=== PATIENT | female | born 1970 | race Caucasian/White ===

== ENCOUNTER 2017-04-20 13:51 | Observation (INO) | payer OTHER ==
[2017-04-20 14:37] VITALS: BMI 32.1
[2017-04-20] MEDS: ACETAMINOPHEN TAB 500 MG TAB PO PRN (16:58)
[2017-04-20 17:52] LABS: Amorphous Sediment,Urine Occasional /hpf; Appearance,Urine Clear (Clear); Bilirubin,Urine Negative (Negative); Glucose,Urine (UA) Negative (Negative); Ketones,Urine 2+ (Negative); Leukocyte Esterase,Urine Negative (Negative); Nitrite,Urine Negative (Negative); Particle Count 676; Protein,Urine Negative (Negative); RBC,Urine 1 /hpf (0-5); Specific Gravity,Urine 1.003 (1.001-1.035); Squamous Epithelial Cell,Urine 1 /hpf (0-4); UA Billing (MACRO vs. MICRO) MICRO; Urobilinogen,Urine <2.0 mg/dL (<2.0); WBC,Urine <1 /hpf (0-5)
[2017-04-20 18:07] LABS: Basophils % (A) 0 %; CH 31.3; CHCM 34.1; Eosinophils % (A) 0 %; HCT 39.9 % (34.0-46.0); HDW 2.31; HGB 13.1 gm/dL (11.4-16.0); Luc # (Auto) 0.09; Luc % (Auto) 2; Lymphocytes # (A) 0.5 k/uL (1.0-4.8); Lymphocytes % (A) 9 %; MCH 30.2 pg (25.0-35.0); MCHC 32.8 g/dL (31.0-37.0); MCV 92.1 fL (80.0-100.0); Mean Platelet Volume 7.5; Monocytes # (A) 0.2 k/uL (0-1.0); Monocytes % (A) 4 %; Neutrophils # (A) 4.7 k/uL (1.3-7.7); Neutrophils % (A) 85 %; RBC 4.33 m/uL (3.80-5.40); RDW 13.4 % (11.5-15.5); WBC 5.6 k/uL (3.8-10.6); WBC (Perox) 5.65
[2017-04-20] MEDS: SODIUM CHLORIDE 0.9% 1,000 ML IV SCH (18:07)
[2017-04-20 18:13] LABS: ALT 492 U/L (9-52); AST 313 U/L (14-36); Alkaline Phosphatase 348 U/L (38-126); Anion Gap 12 mmol/L; Blood Urea Nitrogen 7 mg/dL (7-17); Calcium 8.5 mg/dL (8.4-10.2); Carbon Dioxide 25 mmol/L (22-30); Chloride 102 mmol/L (98-107); Glucose 95 mg/dL (74-99); Non-African American GFR(MDRD) >60 (>60 ml/min/1.73 sqM); Potassium 4.1 mmol/L (3.5-5.1); Sodium 139 mmol/L (137-145); Total Bilirubin 1.3 mg/dL (0.2-1.3); Total Protein 6.6 g/dL (6.3-8.2)
--- NOTE | 2017-04-20 18:54 | XR ---
EXAMINATION TYPE: XR chest 2V DATE OF EXAM: 04/20/2017 COMPARISON: NONE HISTORY: Fever. TECHNIQUE: Frontal and lateral views of the chest are obtained. FINDINGS: There is no focal air space opacity, pleural effusion, or pneumothorax seen. The cardiac silhouette size is within normal limits. The osseous structures are intact. IMPRESSION: No acute cardiopulmonary process.
[2017-04-20] MEDS: lamoTRIgine 100 MG TAB PO SCH (21:02)
[2017-04-20] MEDS: ZIPRASIDONE 20 MG CAP PO SCH (21:03)
[2017-04-20] MEDS: traZODone HCL 50 MG TAB PO SCH (21:03)
[2017-04-20] MEDS: HYDROcodone/APAP 5-325MG 1 EACH TAB PO PRN (21:47)
[2017-04-21] MEDS: HYDROcodone/APAP 5-325MG 1 EACH TAB PO PRN ×5 (01:59→20:59)
[2017-04-21] MEDS: LORazepam 0.5 MG TAB PO PRN ×5 (02:04→21:00)
[2017-04-21] MEDS: SODIUM CHLORIDE 0.9% 1,000 ML IV SCH ×3 (06:52→19:20)
[2017-04-21] MEDS: ZIPRASIDONE 20 MG CAP PO SCH ×2 (08:56→21:00)
[2017-04-21 10:24] LABS: Basophils % (A) 1 %; CH 30.7; CHCM 32.2; Eosinophils % (A) 0 %; HCT 39.9 % (34.0-46.0); HDW 2.35; HGB 12.7 gm/dL (11.4-16.0); Luc # (Auto) 0.11; Luc % (Auto) 2; Lymphocytes # (A) 0.6 k/uL (1.0-4.8); Lymphocytes % (A) 9 %; MCH 30.5 pg (25.0-35.0); MCHC 31.8 g/dL (31.0-37.0); MCV 95.8 fL (80.0-100.0); Mean Platelet Volume 7.8; Monocytes # (A) 0.2 k/uL (0-1.0); Monocytes % (A) 4 %; Neutrophils # (A) 5.1 k/uL (1.3-7.7); Neutrophils % (A) 85 %; RBC 4.16 m/uL (3.80-5.40); RDW 13.1 % (11.5-15.5); WBC (Perox) 6.07
[2017-04-21] MEDS: ACETAMINOPHEN TAB 500 MG TAB PO PRN (10:30)
[2017-04-21 11:03] LABS: Hemoglobin A1C 5.2 % (4.2-6.1)
--- NOTE | 2017-04-21 11:28 | P.PN ---
Subjective A 46-year-old female being seen this morning resting in bed. Patient continues to report having discomfort in the back of the head and in the neck area. Patient's initial presentation was a direct admission from Dr. Triplett's office. Patient states that she has a psychiatrist that she sees Dr. foster in the outpatient setting for her bipolar treatment. Patient stated that she was diagnosed bipolar at the age of 16 and had been on medication. States that she saw her psychiatrist a week ago was making medication changes. Patient stated on Wednesday or Wednesday not certain of the timing started developing pain in the neck and the back of the head. Patient stated on Wednesday she did call the psychiatrist office the office was not open the pain in the neck continue to persist subsequently the patient was seen in Dr. Triplett's office and was advised to be admitted. Currently patient is on Lamictal and Ativan noted the patient's AST 313 and the ALT elevated at 492 with an alk phos of 348. Patient states she continues to have discomfort in the back of the neck no white count on admission the temp was 101. The temp this morning is 100.1. Patient states that the psychiatrists told her that if she developed any discomfort to notify him possibly could be going through withdrawals. It's not certain what medication changes the psychiatrist was making her weaning the patient off she thought it was Trileptal that was stopped patient was also started on Tegretol and states there's been no nausea vomiting no frequent stooling no abdominal pain and no shortness of breath no prior episodes Objective - Vital Signs Vital signs: Vital Signs Temp 100.1 F H 04/21/17 08:10 Pulse 60 04/21/17 08:10 Resp 20 04/21/17 08:10 BP 115/68 04/21/17 08:10 Pulse Ox 96 04/21/17 08:10 Intake & Output 04/20/17 04/21/17 04/21/17 18:59 06:59 18:59 Intake Total 240 240 Balance 240 240 Weight 82.1 kg Intake: Oral 240 240 Other: # Voids 2 - Exam Physical exam 46-year-old female resting in bed continues to report having neck discomfort back of the head "hurts pleasant oriented 3 Lungs essentially clear adequate air movement Heart S1-S2 audible and regular Abdomen soft nontender reports no nausea vomiting Extremities no edema to the bilateral upper or lower extremities moves all extremities - Labs CBC & Chem 7: 04/21/17 10:08 04/20/17 17:39 Labs: Abnormal Lab Results - Last 24 Hours (Table) 04/20/17 04/20/17 04/20/17 Range/Units 17:39 17:39 17:39 Lymphocytes # 0.5 L (1.0-4.8) k/uL AST 313 H (14-36) U/L ALT 492 H (9-52) U/L Alkaline Phosphatase 348 H (38-126) U/L Cholesterol 211 H (<200) mg/dL LDL Cholesterol, Calc 143 H (0-99) mg/dL Urine Ketones (Negative) Urine Blood (Negative) Amorphous Sediment (None) /hpf 04/20/17 04/21/17 Range/Units 17:43 10:08 Lymphocytes # 0.6 L (1.0-4.8) k/uL AST (14-36) U/L ALT (9-52) U/L Alkaline Phosphatase (38-126) U/L Cholesterol (<200) mg/dL LDL Cholesterol, Calc (0-99) mg/dL Urine Ketones 2+ H (Negative) Urine Blood Trace H (Negative) Amorphous Sediment Occasional H (None) /hpf Microbiology - Last 24 Hours (Table) 04/20/17 17:43 Urine Culture - Preliminary Urine,Clean Catch Assessment and Plan Plan: Impression Present on admission febrile persistent headache with neck pain possible drug interaction Bipolar disorder Present on admission elevated AST ALT and alk phos possible drug-induced Plan Await neurology eval Await psych eval Repeat labs IV fluid for hydration Home meds as appropriate Further recommendations pending DVT and GI prophylaxis Follow-up on pending blood and urine culture The above impression and plan of care have been discussed and directed by signing physician. Camille Lundberg nurse practitioner acting as scribe for signing physician.
--- NOTE | 2017-04-21 15:02 | P.CN ---
Psychiatric Consult - . Consult date: 04/21/17 Consult:: 04/21/17 14:50 DATE OF SERVICE: 04/21/2017 IDENTIFYING DATA: This patient is a 46-year-old female admitted to medical floor with headache. HISTORY OF PRESENT ILLNESS: The patient presents with report of a severe headache starting Wednesday or Wednesday and increasing to the point that she could not tolerate and came to the hospital. Patient gives history of having a change of medications by Dr. Lemus reviewed reports that she had been taking Trileptal 300 mg twice a day and Dr. Lemus thought it should be increased to 600 twice a day. This was done for approximately 3 days when she became faint, dizzy and cramping in her legs. Dr. Lemus reduced it back to 300 mg twice a day for 4 days then decrease to 150 mg twice a day for 4 days then 150 mg once a day for 5 days. Tegretol was then begun at 200 mg every morning for 2 days then 200 mg twice a day for 2 days and on Wednesday that was when she began to notice the symptoms of the headache which then increased to the point where she can hardly move and nausea. In addition to this change in medicine she has been on Geodon 20 mg twice a day, Lamictal 100 mg daily at bedtime, trazodone 75 mg daily at bedtime and Ativan 0.5 mg when necessary. Patient denies any drugs or alcohol. Patient reports that she was diagnosed with bipolar approximately 30 years ago and has been treated for bipolar for the past 30 years. She does note that she had one episode of having seizures after she overdosed on a medication that she cannot recall the name of.. PAST PSYCHIATRIC HISTORY: As above she was diagnosed 30 years ago with bipolar disorder has been on a number of different medications that she is not able to recall at this moment. She reports that she made several suicide attempts in the last one was in 2013 and that was when she had seizures due to the medication that she used to overdose on she had approximately 5 hospitalizations between the period of 2012 in 2014 which were related to her and she splitting up.. PAST MEDICAL HISTORY: Per record. ALLERGIES: No known ALLERGIES. CHEMICAL DEPENDENCY HISTORY: Denies. FAMILY PSYCHIATRIC HISTORY: Aunt and sister have depression and her aunt attempted suicide but did not complete. Nobody in the family has completed suicide. FAMILY CHEMICAL DEPENDENCY HISTORY: Denies. LEGAL HISTORY: Denies. MENTAL STATUS EXAM: Patient alert and oriented 3, good eye contact, well groomed in hospital attire. Speech low volume, rate and production. Coherent, logical and goal directed thought process. No ANTHONY, no FOI. No TB/TW/ TI Denied auditory and visual hallucinations. Denied paranoid ideation, delusions or IOR. Memory grossly intact Cognition average Mood neutral, affect full range decreased intensity, congruent with mood. Denies suicidal ideation, denies homicidal ideation. Insight full; Judgment intact for treatment purposes . IMPRESSIONS: 46-year-old female with history of a recent change in her medicines that coincided with the onset of a severe headache, nausea, dizziness. The 2 medications that are in question are similar in nature both anticonvulsant Trileptal and Tegretol the titration and tapering appeared to be normal practice and should not have this reaction. She is not having any display of joe, psychosis, or depression. Review of her medical chart at this hospital shows that she had an admission for cervicalgia which this could be although atypical presentation. Neurology Will evaluate and since they have much more experience with the use of anticonvulsant drugs may be able to provide answer to this. Agreed that review of her liver since she has an elevated enzyme is appropriate. Patient is stable psychiatrically Bipolar, type I by history PLAN: Continue workup. Psychiatry will follow with you, if patient becomes manic Geodon 20mg can be used oral or IM.
[2017-04-21] MEDS: ONDANSETRON 4 MG/2 ML VIAL IVP PRN (15:36)
--- NOTE | 2017-04-21 20:25 | P.PCN ---
Date of Procedure: 04/21/17 Preoperative Diagnosis: Headache Postoperative Diagnosis: as above Procedure(s) Performed: attempted lumbar puncture Implants: Anesthesia: local Surgeon: Lenora Storey Pathology: none sent Condition: stable Disposition: floor Indications for Procedure: Operative Findings: Description of Procedure: I was asked to perform a lumbar puncture for CSF sampling to rule out viral meningitis.After reviewing the patient's history and labs, and explaining the procedure to her, the patient was placed in the sitting position.The lumbar area skin was prepped with Chloraprep and draped in a sterile fashion.Face mask , a hat and sterile gloves were used by the blender machine operator .I used 22 G, Quincke spinal needle , and after multiple unsuccessful attempts I decided to abort the procedure.The attempts were done at the levels of L4-5, and L3-4. The patient has never complained about any Leg pain or paresthesia during the procedure.She did mention that she has a chronic lower back pain that has not been worked up. I recommend that this procedure be done under x ray guidance by interventional radiology.
--- NOTE | 2017-04-21 20:52 | CT ---
EXAMINATION TYPE: CT brain wo con DATE OF EXAM: 04/21/2017 COMPARISON: MRI brain December 27, 2015. CT brain October 06, 2013. HISTORY: Headache CT DLP: 925.40 mGycm. Automated Exposure Control for Dose Reduction was Utilized. TECHNIQUE: CT scan of the head is performed without contrast. FINDINGS: There is no acute intracranial hemorrhage, mass effect, or midline shift identified. Gra y-white matter differentiation is maintained. The ventricles and sulci are within normal limits in si ze. Mild mucosal thickening involving the inferior frontal sinuses bilaterally is redemonstrated. The globes are intact and the visualized sinuses are otherwise clear. IMPRESSION: No acute intracranial hemorrhage, mass effect, or midline shift is seen. No significant change from prior CT or MRI brain studies.
[2017-04-21] MEDS: lamoTRIgine 100 MG TAB PO SCH (21:00)
[2017-04-21] MEDS: traZODone HCL 50 MG TAB PO SCH (21:00)
[2017-04-22] MEDS: HYDROcodone/APAP 5-325MG 1 EACH TAB PO PRN ×5 (02:00→21:16)
[2017-04-22] MEDS: LORazepam 0.5 MG TAB PO PRN ×5 (02:00→21:16)
[2017-04-22 06:56] LABS: Basophils % (A) 0 %; CH 30.4; CHCM 33.6; Eosinophils % (A) 0 %; HCT 37.1 % (34.0-46.0); HDW 2.53; HGB 12.4 gm/dL (11.4-16.0); Luc % (Auto) 2; Lymphocytes # (A) 1.1 k/uL (1.0-4.8); Lymphocytes % (A) 16 %; MCH 30.3 pg (25.0-35.0); MCHC 33.4 g/dL (31.0-37.0); Mean Platelet Volume 6.8; Monocytes # (A) 0.2 k/uL (0-1.0); Monocytes % (A) 3 %; Neutrophils # (A) 5.5 k/uL (1.3-7.7); Neutrophils % (A) 79 %; RBC 4.08 m/uL (3.80-5.40); RDW 12.6 % (11.5-15.5); WBC 6.9 k/uL (3.8-10.6); WBC (Perox) 6.78
[2017-04-22 07:11] LABS: MCV 90.8 fL (80.0-100.0)
[2017-04-22 07:12] LABS: ALT 285 U/L (9-52); AST 106 U/L (14-36); Alkaline Phosphatase 334 U/L (38-126); Anion Gap 9 mmol/L; Blood Urea Nitrogen 6 mg/dL (7-17); Carbon Dioxide 26 mmol/L (22-30); Chloride 105 mmol/L (98-107); Glucose 80 mg/dL (74-99); Non-African American GFR(MDRD) >60 (>60 ml/min/1.73 sqM); Potassium 4.2 mmol/L (3.5-5.1); Sodium 140 mmol/L (137-145); Total Bilirubin 1.2 mg/dL (0.2-1.3); Total Protein 5.7 g/dL (6.3-8.2)
[2017-04-22] MEDS: SODIUM CHLORIDE 0.9% 1,000 ML IV SCH ×3 (07:47→23:16)
[2017-04-22] MEDS: ONDANSETRON 4 MG/2 ML VIAL IVP PRN ×2 (08:08→15:58)
--- NOTE | 2017-04-22 09:37 | HP ---
CHIEF COMPLAINT: 46 -year-old white female who was admitted with Trileptal and Tegretol withdrawal and intractable headache. States she cannot tolerate the headache at home. Dr. Selby sent her to the hospital for a direct admission as she has been weaning off Trileptal and Tegretol. At this point, she became nauseated and severe headache and her other medications will continue including Ativan, Trazodone, Geodon and Lamictal. She has history of bipolar for 30 years , possible some sleep apnea, undiagnosed. She had one seizure. She has overdosed on medications in the past. Allergies negative. Psych history: Aunt and sister have depression. Aunt committed suicide. REVIEW OF SYSTEMS: See H&P. 14 point review of systems otherwise negative except for migraine and nausea. Vital signs reviewed. Cardiovascular: S1, S2. She is lying in bed, flat affect. Depressed. Endocrine: BMI appears a little bit heavy in the 30s. Lungs transmitted upper airway sounds. GI soft. Hematology: Negative Homans. Psych: Fair mood. Flat affect. Assessment: 1. Acute drug withdrawal. 2. Intractable headache secondary to drug withdrawal. Psych and neuro have been consulted. ( ) medicines have been given as Fioricet did not help her headache. Await neurological and psych consultations. ADRID
[2017-04-22 11:03] LABS: Prothrombin Time 10.1 sec (9.0-12.0)
--- NOTE | 2017-04-22 11:13 | CONS ---
DATE OF CONSULTATION: 04/21/2017 CHIEF COMPLAINT: Headache. HISTORY OF PRESENT ILLNESS: Mrs. Zaman is a pleasant 46-year-old female who is being evaluated today on 04/21/2017 by the Neurology Service per the request of Dr. Triplett for a severe and constant headache. The patient denies any previous history of headaches but states that she has been having a severe headache that started approximately 5 days ago. She reported having some chills 5 days ago. She denies having any ill contact and denies any recent travel. She went to see Dr. Triplett in the clinic and was admitted to [facility] for further management. During her hospital stay, her T- max was 101.0. She describes the pain as a dull throbbing pain that is mostly in the posterior head region. She is also complaining of neck stiffness. She has not had any drowsiness, confusion or seizure-like activity. Her CBC was normal and her urinalysis was normal. Her comprehensive metabolic profile showed hepatic insufficiency with AST of 313, ALT of 492, and alkaline phosphatase at 348. She denies any history of liver disease. An abdominal ultrasound has been ordered. Her fasting lipid panel showed mild dyslipidemia with a cholesterol of 211 and an LDL of 143. At the time of my evaluation, she rates her headache at 7/10 in intensity. She has been receiving hydrocodone as needed with only mild relief in intensity. She does complaint of photophobia associated with a headache. In reviewing her home medications, she is on multiple psychiatric medications and psychiatry has been consulted. PAST MEDICAL HISTORY: Psychiatric disorders. SOCIAL HISTORY: She denies any tobacco, alcohol or drug use. FAMILY HISTORY: Noncontributory. HOME MEDICATIONS: Reviewed in the chart. ALLERGIES: No known drug allergies. REVIEW OF SYSTEM: CONSTITUTIONAL: As mentioned above. EYES: As mentioned above. ENT: Negative. CARDIOVASCULAR: Negative. RESPIRATORY: Negative. NEUROLOGICAL: As mentioned above. GASTROINTESTINAL: Negative. GENITOURINARY: Negative. MUSCULOSKELETAL: As mentioned above. DERMATOLOGICAL: Negative. ENDOCRINE: Negative. PSYCHIATRIC: As mentioned above. PHYSICAL EXAM: Vital signs show a temperature of 98.4 with a T-max of 101.0, pulse 71, respirations 16, blood pressure 108/53. GENERAL APPEARANCE: The patient is a well-developed female who appears to be in no acute distress. Neck has mild rigidity on cervical flexion. HEENT: Normocephalic, atraumatic. No facial asymmetry is seen. Extraocular muscles are intact. Tenderness to palpation is noticed along bilateral greater occipital nerve region. CARDIOVASCULAR: Regular rate and rhythm. ABDOMEN: Mild tenderness to palpation is present. Abdomen is nondistended. Extremities showed no edema or clubbing. NEUROLOGICAL EXAM: The patient is alert, aware and oriented x3. Speech and language are normal. Strength is full in all 4 extremities. Sensory exam was normal to light touch in all 4 extremities. No facial asymmetry is seen on cranial nerve testing. No tremors or seizure-like activity is seen. IMPRESSION: 1. Intractable headache. 2. Neck pain. 3. Fever. 4. Hepatic insufficiency. 5. Psychiatric disorders. RECOMMENDATION: Given the patient's intractable headache with no previous history of headaches, I will order a STAT CT scan of the brain. If no intracranial mass is seen, I do recommend a lumbar puncture for spinal fluid analysis to rule out any spiral meningitis. I recommend a CSF sulcal, protein level, glucose level, gram-stain and viral cultures. I do recommend an Infectious Disease consultation if her spinal fluid tests are abnormal. The patient also has evidence of occipital neuritis on my examination. If her headache is not due to any infectious process, she will likely need peripheral nerve blocks which can be done in the outpatient clinic. I do recommend extensive work-up for her hepatic insufficiency. This could be caused or made worse, her psychiatric medications. Psychiatry has been consulted. Continue neuro checks. I will continue to follow with you. Further recommendations to follow. Thank you for allowing me to participate in the care of your patient. If you have any questions, please feel free to contact me. ANGELIQUE
--- NOTE | 2017-04-22 11:40 | US ---
EXAMINATION TYPE: US abdomen complete DATE OF EXAM: 04/22/2017 COMPARISON: NONE CLINICAL HISTORY: Elevated liver enzymes. EXAM MEASUREMENTS: Liver Length: 17.9 cm Gallbladder Wall: 0.4 cm CBD: 0.5 cm Spleen: 13.8 cm Right Kidney: 11.2 x 4.7 x 4.6 cm Left Kidney: 13.0 x 5.8 x 4.8 cm Pancreas: visualized portions appear wnl Liver: upper limits of normal in size Gallbladder: no evidence of stones, GB wall upper limits of normal Evidence for sonographic Lara's sign: No CBD: appears wnl Spleen: enlarged Right Kidney: no evidence of hydronephrosis or mass Left Kidney: no evidence of hydronephrosis or mass Upper IVC: wnl Abd Aorta: visualized portions appear wnl The liver is homogenous. The intrahepatic portion of the IVC and proximal abdominal aorta are within normal limits. There is no evidence of cholelithiasis. Common bile duct is unremarkable. The visu alized portions of the pancreas are homogenous. The spleen is unremarkable. Kidneys are symmetric a nd free of hydronephrosis. No renal lesions are seen. IMPRESSION: 1. Gallbladder wall measures 4.5 mm and is slightly thickened. No gallstones or pericholecystic fluid . Correlate clinically and if necessary with HIDA scan.
[2017-04-22] MEDS: ZIPRASIDONE 20 MG CAP PO SCH ×2 (15:58→21:11)
--- NOTE | 2017-04-22 15:58 | FL ---
EXAMINATION TYPE: FL guided lumbar puncture LP DATE OF EXAM: 04/22/2017 COMPARISON: MRI lumbar spine August 17, 2014. HISTORY: Severe headache and neck pain, assess for meningitis. TECHNIQUE: Fluoroscopic assisted lumbar puncture for CSF analysis. A total of 3 minutes 54 seconds of fluoroscopic time was utilized during procedure. Findings: Informed consent was obtained and all the patient's questions were answered. Betadine was used as to cleanse the skin. Standard sterile technique was utilized as well as appropriate local a nesthesia Lidocaine. 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 The L3-L4 level was first attempted localized under fluoroscopy. This was unsuccessful as kept encoun tering bone short of spinal canal. After this under fluoroscopic guidance attempt was made at L4-L5 level using paraspinal approach. Spinal needle was introduced into the thecal sac under fluoroscopic guidance and desired 7- 9 cc of c lear CSF was obtained in 4 vials. At this point needle was withdrawn. The patient tolerated the procedure well and left the department to return to the floor in stable con dition. Vital signs were monitored before, during, and after the procedure. IMPRESSION: Successful uncomplicated assisted lumbar puncture for CSF analysis. Labs were ordered by requesting neurologist.
[2017-04-22 16:29] LABS: Glucose,CSF 46 mg/dL (40-70)
--- NOTE | 2017-04-22 16:35 | P.PN ---
Subjective Female being seen this morning on rounds. Patient is aware the plan of care is scheduled this morning to undergo a diagnostic lumbar puncture studies. Temp this morning 98.8 on room air sats are 90% the ultrasound of the abdomen showed gallbladder wall measures 4 x 4 slightly thickened there is an improvement in the liver enzymes are trending down Objective - Vital Signs Vital signs: Vital Signs Temp 97.5 F L 04/22/17 12:25 Pulse 60 04/22/17 12:25 Resp 16 04/22/17 12:25 BP 110/54 04/22/17 12:25 Pulse Ox 99 04/22/17 12:25 Intake & Output 04/21/17 04/22/17 04/22/17 18:59 06:59 18:59 Intake Total 240 Output Total 310 Balance 240 -310 Intake: Oral 240 Output: Urine 310 Other: Voiding Method Toilet # Voids 2 1 - Exam Physical exam 46-year-old female resting in bed patient reports continues to have a headache but is not as intense. Patient states pain medication offer some mild relief in the intensity of the headache. Patient does report having sensitivity to light with the headache denies blurred vision. States there is last neck stiffness Lungs essentially clear adequate air movement no cough noted Heart S1-S2 audible and regular Abdomen soft nontender reports no nausea vomiting Extremities no edema to the bilateral upper or lower extremities moves all extremities - Labs CBC & Chem 7: 04/22/17 06:26 04/22/17 06:26 Labs: Abnormal Lab Results - Last 24 Hours (Table) 04/22/17 Range/Units 06:26 BUN 6 L (7-17) mg/dL Calcium 8.0 L (8.4-10.2) mg/dL AST 106 H (14-36) U/L ALT 285 H (9-52) U/L Alkaline Phosphatase 334 H (38-126) U/L Total Protein 5.7 L (6.3-8.2) g/dL Albumin 3.3 L (3.5-5.0) g/dL Microbiology - Last 24 Hours (Table) 04/20/17 17:43 Urine Culture - Final Urine,Clean Catch 04/20/17 18:03 Blood Culture - Preliminary Blood No Growth after 24 hours 04/20/17 17:39 Blood Culture - Preliminary Blood No Growth after 24 hours Assessment and Plan Plan: Impression Present on admission febrile persistent headache with neck pain possible drug interaction Bipolar disorder Present on admission elevated AST ALT and alk phos possible drug-induced Occipital neuritis present on admission Plan Await the LP findings Eder recommendations reviewed noted Repeat labs IV fluid for hydration Home meds as appropriate Further recommendations pending DVT and GI prophylaxis Follow-up on pending blood and urine culture The above impression and plan of care have been discussed and directed by signing physician. Camille Lundberg nurse practitioner acting as scribe for signing physician.
--- NOTE | 2017-04-22 17:00 | P.PN ---
Subjective Principal diagnosis: She is a pleasant 46-year-old female who is being followed by the neurology service for intractable headache. Patient denies history of headaches but states she's had a headache that has been ongoing for the last week. Patient does report being in contact with her sister who just returned from [place]. Patient did seek treatment from primary care physician who instructed her to come to [facility] for further management. Patient complains of constant headache along with neck stiffness. Patient did have lumbar puncture performed and results are pending. At the time of my evaluation , patient is resting comfortably in bed and rates her headache at a 7 out of 10 in intensity. Patient does complain of photophobia. Patient also complains of visual disturbance of flashing lights when she closes her eyes. Patient also has history of multiple psychiatric medications and psychiatry has been consulted. Objective - Vital Signs Vital signs: Vital Signs Temp 98.8 F 04/22/17 15:51 Pulse 62 04/22/17 16:00 Resp 16 04/22/17 15:51 BP 116/61 04/22/17 15:51 Pulse Ox 98 04/22/17 15:51 Intake & Output 04/21/17 04/22/17 04/22/17 18:59 06:59 18:59 Intake Total 240 45 Output Total 250 Balance 240 -205 Intake: Oral 240 45 Output: Urine 250 Other: Voiding Method Toilet # Voids 2 1 1 - Exam PHYSICAL EXAM: GENERAL APPEARANCE: Patient is a well-developed, female who appears to be in no acute distress. HEENT: Normocephalic, atraumatic, no facial asymmetry is seen. Neck is supple with no masses felt. CARDIOVASCULAR: Regular rate and rhythm. ABDOMEN: Nontender, nondistended. EXTREMITIES: Show no edema or clubbing. NEUROLOGICAL EXAM: Patient is awake, alert, and oriented 3. Speech and language are normal. Strength is full in all 4 extremities. Sensory exam is normal to light touch in all 4 extremities. No facial asymmetry is seen on cranial nerve testing. No seizure-like activity is noted. Patient does have resting tremor and postural tremors of the upper extremities which is greater in the right upper extremity. - Labs CBC & Chem 7: 04/22/17 06:26 04/22/17 06:26 Labs: Abnormal Lab Results - Last 24 Hours (Table) 04/22/17 Range/Units 06:26 BUN 6 L (7-17) mg/dL Calcium 8.0 L (8.4-10.2) mg/dL AST 106 H (14-36) U/L ALT 285 H (9-52) U/L Alkaline Phosphatase 334 H (38-126) U/L Total Protein 5.7 L (6.3-8.2) g/dL Albumin 3.3 L (3.5-5.0) g/dL Microbiology - Last 24 Hours (Table) 04/20/17 17:43 Urine Culture - Final Urine,Clean Catch 04/20/17 18:03 Blood Culture - Preliminary Blood No Growth after 24 hours 04/20/17 17:39 Blood Culture - Preliminary Blood No Growth after 24 hours Assessment and Plan Plan: IMPRESSION: 1. Intractable headache 2. Neck pain 3. Fever 4. Hepatic insufficiency 5. Psychiatric disorder Recommendation: Patient presented with intractable headache with no history of headaches. Stat CT was done which showed no acute intracranial hemorrhage, mass effect, or midline shift. Computed tomography scan of the brain did not reveal any intracranial mass or pathology that would be contributing to intractable headache. Therefore, a lumbar puncture was performed for spinal fluid analysis to rule out spinal meningitis. If cerebrospinal fluid tests are abnormal I recommend infectious disease consult. Patient also has occipital neuritis on exam. If infectious process is ruled out, greater occipital nerve blocks can be done in the outpatient clinic setting. I do recommend review and revision of psychiatric medications. Continue neurological checks. Continue medical management. I will continue to follow with you. Further recommendations to follow. I performed an examination of the patient and discussed the management with the DEPARTMENTAL SECRETARY. I have reviewed the DEPARTMENTAL SECRETARY notes and agree with the findings and plan of care.
[2017-04-22 20:06] LABS: Appearance,CSF Clear
[2017-04-22 20:07] LABS: Red Blood Cell, CSF Crenated 60 %; Red Blood Cell, CSF Fresh 40 %
[2017-04-22] MEDS: lamoTRIgine 100 MG TAB PO SCH (21:11)
[2017-04-22] MEDS: traZODone HCL 50 MG TAB PO SCH (21:11)
[2017-04-23] MEDS: LORazepam 0.5 MG TAB PO PRN ×4 (02:03→21:19)
[2017-04-23] MEDS: HYDROcodone/APAP 5-325MG 1 EACH TAB PO PRN ×4 (02:03→21:19)
[2017-04-23] MEDS: SODIUM CHLORIDE 0.9% 1,000 ML IV SCH ×3 (06:55→21:25)
[2017-04-23 07:07] LABS: Basophils % (A) 0 %; CH 30.9; CHCM 33.9; Eosinophils % (A) 0 %; HCT 35.5 % (34.0-46.0); HDW 2.49; HGB 11.5 gm/dL (11.4-16.0); Luc # (Auto) 0.07; Luc % (Auto) 1; Lymphocytes # (A) 1.1 k/uL (1.0-4.8); Lymphocytes % (A) 18 %; MCH 29.8 pg (25.0-35.0); MCHC 32.5 g/dL (31.0-37.0); MCV 91.7 fL (80.0-100.0); Mean Platelet Volume 7.4; Monocytes # (A) 0.2 k/uL (0-1.0); Monocytes % (A) 4 %; Neutrophils # (A) 4.7 k/uL (1.3-7.7); Neutrophils % (A) 77 %; RBC 3.88 m/uL (3.80-5.40); RDW 13.1 % (11.5-15.5); WBC 6.1 k/uL (3.8-10.6); WBC (Perox) 6.37
[2017-04-23 07:32] LABS: ALT 231 U/L (9-52); AST 109 U/L (14-36); Alkaline Phosphatase 326 U/L (38-126); Anion Gap 8 mmol/L; Blood Urea Nitrogen 4 mg/dL (7-17); Calcium 7.8 mg/dL (8.4-10.2); Carbon Dioxide 26 mmol/L (22-30); Chloride 106 mmol/L (98-107); Glucose 83 mg/dL (74-99); Non-African American GFR(MDRD) >60 (>60 ml/min/1.73 sqM); Sodium 140 mmol/L (137-145); Total Protein 5.1 g/dL (6.3-8.2)
--- NOTE | 2017-04-23 09:33 | NM ---
EXAMINATION TYPE: NM hepatobiliary w EF DATE OF EXAM: 04/23/2017 COMPARISON: Complete abdominal ultrasound from yesterday HISTORY: Abdominal pain with diminished appetite and nausea. TECHNIQUE: After the intravenous administration of 5.5 mCi Tc 99m Mebrofenin hepatobiliary scintigrap hy is performed. Immediate images post injection. FINDINGS: There is satisfactory initial accumulation of tracer by the liver. The gallbladder is visualized wit hin 20 minutes. The small bowel activity is noted within 30 minutes. At one hour 8 ounces of oral e nsure plus is given to mimic CCK and gallbladder ejection fraction is calculated at 32 %, slightly de viated from normal range. Therefore there is no scintigraphic evidence of cystic or common bile duct obstruction to suggest acute cholecystitis. Overall diminished ejection fraction is consistent with chronic cholecystitis or gallbladder dyskinesia. IMPRESSION: Ejection fraction is 32%, slightly deviated from the normal range, scintigraphic findings are consistent with some underlying gallbladder dyskinesia.
[2017-04-23] MEDS: ZIPRASIDONE 20 MG CAP PO SCH ×2 (09:39→21:19)
--- NOTE | 2017-04-23 15:27 | MR ---
EXAMINATION TYPE: MR brain wo con DATE OF EXAM: 04/23/2017 COMPARISON: MRI brain December 27, 2015. CT brain from 2 days ago. HISTORY: Headaches, possible meningitis. TECHNIQUE: Multiplanar, multisequence imaging of the brain and brainstem is performed without IV cont rast. FINDINGS: Diffusion weighted images demonstrate no evidence of a recent infarct or other diffusion abnormality. There is no extraaxial fluid collection or significant white matter signal abnormality. There is new single 2 mm T2 hyperintense focus right roman radiata on axial image 20 likely of clinical insignifi cance and slightly more prominent 3 mm right centrum semiovale frontal lobe on axial image 23. The ve ntricular system and cisternal spaces are normal in size and appearance. The brain volume is age fernando ropriate. Midline structures demonstrate normal morphology. The craniocervical junction appears within normal limits. Normal vascular flow voids are present. There is now mild mucosal thickening in the ethmoid s inuses bilaterally otherwise paranasal sinuses are clear. IMPRESSION: No significant finding is seen to account for patient's symptoms on noncontrast study.
--- NOTE | 2017-04-23 15:30 | MR ---
EXAMINATION TYPE: MR angio head wo con DATE OF EXAM: 04/23/2017 COMPARISON: Same day MRI brain study. HISTORY: Headaches TECHNIQUE: Time of flight images focusing on the [place] of [place] were performed without contrast.. 2-D and 3-D postprocessing imaging is performed. FINDINGS: There is codominant vertebrobasilar system with slightly tortuous course to the distal righ t vertebral artery. Both vertebral arteries are patent to the basilar junction. There is no significa nt focal stenosis or aneurysmal change seen. There is hypoplastic right P1 segment with filling of th e P2 segment due to patent posterior communicating artery on the right. There is hypoplastic left pos terior communicating artery identified. Images of the anterior circulation show marked tortuosity to the distal internal carotid arteries dangelo aterally including bilateral petrous and supraclinoid segments making evaluation suboptimal. There is no convincing evidence of focal aneurysm. Short segment patent anterior communicating artery is pres ent on image 66. IMPRESSION: No evidence of significant focal stenosis or aneurysmal change at the level of the [place] of [place]. Normal variant is appreciated.
--- NOTE | 2017-04-23 15:43 | P.GSCN ---
History of Present Illness Consult date: 04/23/17 Reason for Consult: Nausea, abdominal pain History of present illness: This a 46-year-old female who is admitted to Dr. Errol Suazo service. Patient was admitted for nausea and abdominal pain. Patient CAT scan performed which showed a large gallbladder. Her HIDA scan shows evidence of biliary dysfunction with the diminished ejection fraction of 32%. Past Medical History Past Medical History: No Reported History History of Any Multi-Drug Resistant Organisms: None Reported Past Surgical History: Bariatric Surgery, Hysterectomy Additional Past Surgical History / Comment(s): thyroid biopsy - 2012 non diagnostic Past Anesthesia/Blood Transfusion Reactions: No Reported Reaction Past Psychological History: Anxiety, Bipolar, Depression Smoking Status: Never smoker Past Alcohol Use History: None Reported Past Drug Use History: None Reported - Past Family History Father Family Medical History: No Reported History Medications and Allergies Home Medications Medication Instructions Recorded Confirmed Type lamoTRIgine [LaMICtal] 200 mg PO HS 06/01/16 04/20/17 History traZODone HCL 75 mg PO HS 06/01/16 04/20/17 History Aspirin/Acetaminophen/Caffeine 2 tab PO DAILY PRN 04/20/17 04/20/17 History [Excedrin Migraine Caplet] LORazepam [Ativan] 0.5 mg PO TID PRN 04/20/17 04/20/17 History Ziprasidone HCl [Geodon] 20 mg PO BID 04/20/17 04/20/17 History Allergies Allergy/AdvReac Type Severity Reaction Status Date / Time No Known Allergies Allergy Verified 04/20/17 14:37 Surgical - Exam Vital Signs Temp Pulse Resp BP Pulse Ox 101.0 F H 79 16 117/66 98 04/20/17 15:40 04/20/17 15:40 04/20/17 15:40 04/20/17 15:40 04/20/17 15:40 - General well developed, no distress - Eyes PERRL - ENT normal pinna - Neck no masses - Respiratory normal expansion - Cardiovascular Rhythm: regular - Abdomen Mild epigastric tenderness. There is no rebound or guarding. Abdomen: soft Results - Labs 04/23/17 06:25 04/23/17 06:25 Abnormal Lab Results - Last 24 Hours (Table) 04/22/17 04/23/17 Range/Units 06:00 06:25 BUN 4 L (7-17) mg/dL Calcium 7.8 L (8.4-10.2) mg/dL AST 109 H (14-36) U/L ALT 231 H (9-52) U/L Alkaline Phosphatase 326 H (38-126) U/L Total Protein 5.1 L (6.3-8.2) g/dL Albumin 2.9 L (3.5-5.0) g/dL CSF RBC 35 H (0-10) u/L Microbiology - Last 24 Hours (Table) 04/22/17 06:00 CSF Gram Stain - Preliminary Cerebral Spinal Fluid CSF Culture - Preliminary 04/22/17 06:00 Anaerobic Culture - Preliminary Cerebral Spinal Fluid 04/20/17 18:03 Blood Culture - Preliminary Blood No Growth after 48 hours 04/20/17 17:39 Blood Culture - Preliminary Blood No Growth after 48 hours Diabetes panel 04/23/17 Range/Units 06:25 Sodium 140 (137-145) mmol/L Potassium 4.0 (3.5-5.1) mmol/L Chloride 106 (98-107) mmol/L Carbon Dioxide 26 (22-30) mmol/L BUN 4 L (7-17) mg/dL Creatinine 0.64 (0.52-1.04) mg/dL Glucose 83 (74-99) mg/dL Calcium 7.8 L (8.4-10.2) mg/dL AST 109 H (14-36) U/L ALT 231 H (9-52) U/L Alkaline Phosphatase 326 H (38-126) U/L Total Protein 5.1 L (6.3-8.2) g/dL Albumin 2.9 L (3.5-5.0) g/dL Calcium panel 04/23/17 Range/Units 06:25 Calcium 7.8 L (8.4-10.2) mg/dL Albumin 2.9 L (3.5-5.0) g/dL Pituitary panel 04/23/17 Range/Units 06:25 Sodium 140 (137-145) mmol/L Potassium 4.0 (3.5-5.1) mmol/L Chloride 106 (98-107) mmol/L Carbon Dioxide 26 (22-30) mmol/L BUN 4 L (7-17) mg/dL Creatinine 0.64 (0.52-1.04) mg/dL Glucose 83 (74-99) mg/dL Calcium 7.8 L (8.4-10.2) mg/dL Adrenal panel 04/23/17 Range/Units 06:25 Sodium 140 (137-145) mmol/L Potassium 4.0 (3.5-5.1) mmol/L Chloride 106 (98-107) mmol/L Carbon Dioxide 26 (22-30) mmol/L BUN 4 L (7-17) mg/dL Creatinine 0.64 (0.52-1.04) mg/dL Glucose 83 (74-99) mg/dL Calcium 7.8 L (8.4-10.2) mg/dL Total Bilirubin 1.0 (0.2-1.3) mg/dL AST 109 H (14-36) U/L ALT 231 H (9-52) U/L Alkaline Phosphatase 326 H (38-126) U/L Total Protein 5.1 L (6.3-8.2) g/dL Albumin 2.9 L (3.5-5.0) g/dL Assessment and Plan Plan: Chronic cholestasis. Patient will be scheduled for outpatient laparoscopic cholecystectomy when she feels better.
--- NOTE | 2017-04-23 17:48 | P.PN ---
Subjective Principal diagnosis: She is a pleasant 46-year-old female who is being followed by the neurology service for intractable headache. Patient denies history of headaches but states she's had a headache that has been ongoing for the last week. Patient does report being in contact with her sister who just returned from [place]. Patient did seek treatment from primary care physician who instructed her to come to [facility] for further management. Patient complains of constant headache along with neck stiffness. Patient did have lumbar puncture performed and results are pending. At the time of my evaluation , patient is resting comfortably in bed and rates her headache at a 7 out of 10 in intensity. Patient does complain of photophobia. Patient also complains of visual disturbance of flashing lights when she closes her eyes. Patient also has history of multiple psychiatric medications and psychiatry has been consulted. 04/23/2017 Patient is feeling much better today. Patient states headache is improved from yesterday. Patient has been afebrile. No nuchal rigidity. Patient has been up ambulating in the room. At the time of my evaluation, patient's resting comfortably in bed and appears to be in no acute distress. Objective - Vital Signs Vital signs: Vital Signs Temp 98.3 F 04/23/17 16:31 Pulse 65 04/23/17 16:31 Resp 16 04/23/17 16:31 BP 119/71 04/23/17 16:31 Pulse Ox 99 04/23/17 16:31 Intake & Output 04/22/17 04/23/17 04/23/17 18:59 06:59 18:59 Intake Total 705 Output Total 600 1150 Balance 105 -1150 Intake: Oral 705 Output: Urine 600 1150 Other: Voiding Method Toilet Toilet # Voids 1 2 - Exam PHYSICAL EXAM: GENERAL APPEARANCE: Patient is a well-developed, female who appears to be in no acute distress. HEENT: Normocephalic, atraumatic, no facial asymmetry is seen. Neck is supple with no masses felt. CARDIOVASCULAR: Regular rate and rhythm. ABDOMEN: Nontender, nondistended. EXTREMITIES: Show no edema or clubbing. NEUROLOGICAL EXAM: Patient is awake, alert, and oriented 3. Speech and language are normal. Strength is full in all 4 extremities. Sensory exam is normal to light touch in all 4 extremities. No facial asymmetry is seen on cranial nerve testing. No seizure-like activity is noted. Patient does have resting tremor and postural tremors of the upper extremities which is greater in the right upper extremity. - Labs CBC & Chem 7: 04/23/17 06:25 04/23/17 06:25 Labs: Abnormal Lab Results - Last 24 Hours (Table) 04/22/17 04/23/17 Range/Units 06:00 06:25 BUN 4 L (7-17) mg/dL Calcium 7.8 L (8.4-10.2) mg/dL AST 109 H (14-36) U/L ALT 231 H (9-52) U/L Alkaline Phosphatase 326 H (38-126) U/L Total Protein 5.1 L (6.3-8.2) g/dL Albumin 2.9 L (3.5-5.0) g/dL CSF RBC 35 H (0-10) u/L Microbiology - Last 24 Hours (Table) 04/22/17 06:00 CSF Gram Stain - Preliminary Cerebral Spinal Fluid CSF Culture - Preliminary 04/22/17 06:00 Anaerobic Culture - Preliminary Cerebral Spinal Fluid 04/20/17 18:03 Blood Culture - Preliminary Blood No Growth after 48 hours 04/20/17 17:39 Blood Culture - Preliminary Blood No Growth after 48 hours Assessment and Plan Plan: IMPRESSION: 1. Intractable headache 2. Neck pain 3. Fever 4. Hepatic insufficiency 5. Psychiatric disorder Recommendation: Patient presented with intractable headache with no history of headaches. Stat CT was done which showed no acute intracranial hemorrhage, mass effect, or midline shift. Computed tomography scan of the brain did not reveal any intracranial mass or pathology that would be contributing to intractable headache. A lumbar puncture was performed for spinal fluid analysis to rule out spinal meningitis. Cerebrospinal fluid testing has been negative so far. Preliminary cultures have all been negative. Viral cultures have been negative. Urine cultures were negative. Blood cultures were negative as well. If final cultures are negative, patient will be cleared for discharge. Patient continues to have occipital neuritis on exam. We discussed greater occipital nerve blocks as an outpatient. Patient was seen by Gen. surgery and will have cholecystectomy done as an outpatient. Continue neurological checks. Continue medical management. I will continue to follow with you. Further recommendations to follow. I performed an examination of the patient and discussed the management with the SUPERINTENDENT RECREATION. I have reviewed the SUPERINTENDENT RECREATION notes and agree with the findings and plan of care.
[2017-04-23] MEDS: lamoTRIgine 100 MG TAB PO SCH (21:19)
[2017-04-23] MEDS: traZODone HCL 50 MG TAB PO SCH (21:21)
[2017-04-24] MEDS: HYDROcodone/APAP 5-325MG 1 EACH TAB PO PRN ×3 (02:36→10:16)
[2017-04-24] MEDS: LORazepam 0.5 MG TAB PO PRN (02:36)
[2017-04-24] MEDS: SODIUM CHLORIDE 0.9% 1,000 ML IV SCH (06:36)
[2017-04-24 07:25] LABS: ALT 358 U/L (9-52); AST 288 U/L (14-36); Alkaline Phosphatase 353 U/L (38-126); Anion Gap 8 mmol/L; Blood Urea Nitrogen 3 mg/dL (7-17); Calcium 7.9 mg/dL (8.4-10.2); Carbon Dioxide 28 mmol/L (22-30); Chloride 106 mmol/L (98-107); Glucose 78 mg/dL (74-99); Non-African American GFR(MDRD) >60 (>60 ml/min/1.73 sqM); Potassium 3.7 mmol/L (3.5-5.1); Sodium 142 mmol/L (137-145); Total Bilirubin 0.7 mg/dL (0.2-1.3)
[2017-04-24 08:06] VITALS: BP 104/55; PULSE 70; RESP 16; TEMP 98
[2017-04-24] MEDS: ZIPRASIDONE 20 MG CAP PO SCH (08:27)
--- NOTE | 2017-04-24 10:50 | P.PN ---
Progress Note - Text The patient is feeling better. She has less abdominal pain. On exam her vital signs are stable. Her abdomen soft. It. Patient will be discharged home and follow-up as outpatient for cholecystectomy.
--- NOTE | 2017-04-24 13:42 | PN ---
SUBJECTIVE: 46-year-old white female. Negative MRI/MRA. HIDA scan shows abnormal gallbladder which will be done as an outpatient. Once CSF cultures are negative she will be discharged home to follow up as an outpatient with occipital nerve blocks at neurology clinic. CARDIOVASCULAR: S1/S2. LUNGS: Transmitted upper airway sounds. GI: Soft, nontender. HEMATOLOGY: Negative Homans. ASSESSMENT: 1. Cephalgia secondary to occipital neuritis most likely. 2. Chronic cholecystitis. 3. Bipolar with possible withdrawal symptoms. The patient will need to follow up as an outpatient as she is clinically stabilized at this point. ANGELIQUE
--- NOTE | 2017-06-19 21:46 | DS ---
DISCHARGE SUMMARY ADMITTED: 04/20/2017. DISCHARGE DATE: 04/24/17. DISCHARGE MEDICATIONS: 1. Trazodone 150 mg half tab q.h.s. 2. Lamictal 200 mg daily. 3. Lorazepam 0.5 mg t.i.d. 4. Aspirin acetaminophen caffeine 2 tabs daily. 5. Geodon 20 mg b.i.d. CONDITION: Stable. PROGNOSIS: Guarded. Ambulate as tolerated. DISCHARGE DIAGNOSES: 1. Cephalgia. 2. Chronic cholecystitis. 3. Bipolar withdrawal symptoms. 4. showed abnormal gallbladder symptoms. CSF cultures were negative. Follow up with neurology clinic and surgical clinic. The patient stabilizes in stable condition. Follow up as outpatient. MMODL / IJN: [id number] /
== END 2017-04-24 10:57 | disposition home or self-care (01) ==
LOC: 6PED 14:03
PROVIDERS: ADMIT Family Medicine; ATTEND Family Medicine
DX: R51 Headache (principal); F19.239 Other psychoactive substance dependence with withdrawal, unspecified; F31.9 Bipolar disorder, unspecified; M54.2 Cervicalgia; K81.1 Chronic cholecystitis; K83.1 Obstruction of bile duct; R11.0 Nausea; R50.9 Fever, unspecified; R74.8 Abnormal levels of other serum enzymes; Z81.8 Family history of other mental and behavioral disorders; H53.149 Visual discomfort, unspecified; E78.5 Hyperlipidemia, unspecified; K72.90 Hepatic failure, unspecified without coma; M43.6 Torticollis; M79.2 Neuralgia and neuritis, unspecified; H53.9 Unspecified visual disturbance; F41.9 Anxiety disorder, unspecified; Z79.899 Other long term (current) drug therapy
CPT/HCPCS: 62270 ×2; 87496; 87498; 87529 ×2; 87798 ×2; 88108; 84157; 80061; 80053 ×4; 82945; 84443; 83036; 85025 ×4; 85610; 89050; 81001; 87040; 87252; 87070; 87086; 87205; 71020; 76700; 70450; 70544; 70551; 78226; G0378 ×5; G0379; A9537; J2001; J2405 ×2; 87075

== ENCOUNTER 2017-05-13 07:35 | Day surgery (SDC) | payer OTHER ==
[2017-05-05 15:25] VITALS: BMI 30.1
[~2017-05-13 07:35] MED LIST: DEXAMETHASONE SOD PHOSPHATE 10 MG/ML 1 ML VIAL IV ONE; HEPARIN SODIUM,PORCINE 5,000 UNIT/ML 1 ML VIAL SQ ONE; LACTATED RINGERS 1,000 ML IV SCH; LIDOCAINE 1% 20 ML VIAL (10MG/ML) FOR IV START INTRADERMA PRN; MIDAZOLAM 2 MG/2 ML VIAL IV PRN; ONDANSETRON 4 MG/2 ML VIAL IVP ONE; SCOPOLAMINE 1.5MG/72HR PATCH TRANSDERM ONE; ceFAZolin 2 GM in SODIUM CHLORIDE 0.9% 100 ML IVPB ONE
[2017-05-13 08:17] VITALS: RESP 16; TEMP 98.2
--- NOTE | 2017-05-13 09:04 | P.GSHP ---
History of Present Illness H&P Date: 05/13/17 Chief Complaint: Right upper quadrant pain This is a 38-year-old female referred from Dr. Errol Suazo. Patient's had complaints of right quadrant pain. She's had a recent HIDA scan which shows abnormal ejection fraction. She presents today for laparoscopic ostectomy for chronic cholecystitis. Past Medical History Past Medical History: No Reported History History of Any Multi-Drug Resistant Organisms: None Reported Past Surgical History: Bariatric Surgery, Hysterectomy Additional Past Surgical History / Comment(s): thyroid biopsy /benign Past Anesthesia/Blood Transfusion Reactions: No Reported Reaction Past Psychological History: Anxiety, Bipolar, Depression Smoking Status: Never smoker Past Alcohol Use History: None Reported Past Drug Use History: None Reported - Past Family History Father Family Medical History: No Reported History Medications and Allergies Home Medications Medication Instructions Recorded Confirmed Type lamoTRIgine [LaMICtal] 200 mg PO HS 06/01/16 05/13/17 History traZODone HCL 75 mg PO HS 06/01/16 05/13/17 History Aspirin/Acetaminophen/Caffeine 2 tab PO DAILY PRN 04/20/17 05/13/17 History [Excedrin Migraine Caplet] LORazepam [Ativan] 0.5 mg PO TID PRN 04/20/17 05/13/17 History Ziprasidone HCl [Geodon] 20 mg PO BID 04/20/17 05/13/17 History Allergies Allergy/AdvReac Type Severity Reaction Status Date / Time No Known Allergies Allergy Verified 05/13/17 08:10 Surgical - Exam Vital Signs Temp Pulse Resp BP Pulse Ox 98.2 F 58 L 16 120/80 96 05/13/17 08:13 05/13/17 08:13 05/13/17 08:13 05/13/17 08:13 05/13/17 08:13 - General well developed, no distress - Eyes PERRL - ENT normal pinna - Neck no masses - Respiratory normal expansion - Cardiovascular Rhythm: regular - Abdomen Abdomen: soft, non tender Assessment and Plan Plan: Chronic cholecystis. We'll perform laparoscopic cholecystectomy.
[2017-05-13] MEDS ORDERED: MIDAZOLAM 2 MG/2 ML VIAL ONE (09:17)
[2017-05-13] MEDS ORDERED: ROCURONIUM BROMIDE 10 MG/ML 10 ML VIAL IV ONE (09:17)
[2017-05-13] MEDS ORDERED: LIDOCAINE 1% INJ 10MG/ML (20 ML MDV) ONE (09:17)
[2017-05-13] MEDS ORDERED: KETOROLAC 30 MG/ML 1 ML VIAL ONE (09:17)
[2017-05-13] MEDS ORDERED: PROPOFOL 10 MG/ML 20 ML VIAL IV ONE (09:17)
[2017-05-13] MEDS ORDERED: NEOSTIGMINE 1 MG/ML 10 ML VIAL ONE (09:17)
[2017-05-13] MEDS ORDERED: fentaNYL (PF) 50 MCG/ML 2 ML AMP ONE (09:17)
[2017-05-13] MEDS ORDERED: GLYCOPYRROLATE 0.2 MG/ML 2 ML VIAL ONE (09:17)
[2017-05-13] MEDS ORDERED: SUCCINYLCHOLINE CHLORIDE 100 MG/5 ML SYR IV ONE (09:17)
--- NOTE | 2017-05-13 09:22 | P.OP ---
Date of Procedure: 05/13/17 Preoperative Diagnosis: Left lower quadrant pain Screening colonoscopy Postoperative Diagnosis: Diverticulosis Procedure(s) Performed: Colonoscopy Implants: Anesthesia: MAC Surgeon: Cliff Gilmore Pathology: other Condition: stable Disposition: PACU Indications for Procedure: Operative Findings: Description of Procedure: The patient's placed on the endoscopy table in the lateral position. She received IV sedation. Digital rectal exam was performed which revealed no abnormalities. The flexible colonoscope was then placed patient anus and passed throughout the entire colon. The ileocecal valve was visualized. The cecum, ascending colon and transverse colon appeared normal. In the descending and sigmoid colon there was mild diverticular changes. The scope was then brought back to the rectum. This appeared normal. The scope was withdrawn for patient.
[2017-05-13] MEDS ORDERED: BUPIVACAINE-EPI 0.5%-1:200,000 10 ML VIAL SQ ONE (09:34)
[2017-05-13] MEDS ORDERED: LACTATED RINGERS 1,000 ML IV ONE (09:52)
--- NOTE | 2017-05-13 09:54 | P.OP ---
Date of Procedure: 05/13/17 Preoperative Diagnosis: Cholecystitis Postoperative Diagnosis: Cholecystitis Procedure(s) Performed: Laparoscopic cholecystectomy Implants: Anesthesia: RENETTA Surgeon: Cliff Gilmore Estimated Blood Loss (ml): 5 Pathology: other (Gallbladder) Condition: stable Disposition: PACU Indications for Procedure: Operative Findings: Description of Procedure: The patient was placed on the operating table. The patient received a general endotracheal tube anesthesia. The patients abdomen was prepped and draped in the usual sterile fashion. Through an infraumbilical stab incision, the fascia of the anterior abdominal wall was grasped with a pair of Kochers and then the Veress needle was placed in the peritoneal cavity. Position of the Veress needle was confirmed with positive drop test. The abdomen was then insufflated. After adequate insufflation, the 10 mm trocar was placed in the peritoneal cavity. Following this the laparoscope was placed in the peritoneal cavity. The patient was placed in the head-up, right side up position and then a 5 mm trocar was placed in the right lateral and right subcostal position under direct visualization. A 8 mm trocar was placed in the epigastric position. The gallbladder was grasped in the fundus and infundibulum. Traction on the gallbladder was placed in the lateral and the cephalad positions. The triangle of Calot was visualized.. The cystic duct was bluntly dissected until the union of the cystic duct and common bile duct was seen. The cystic duct was then divided and sealed with the Harmonic scissors. A PDS Endoloop was then placed throughout the cystic duct stump. The cystic artery divided and sealed with the Harmonic scissors. The gallbladder was then removed from the liver bed using Harmonic scissors. The gallbladder was then extracted through the epigastric port site. Operative field was checked for any bleeding spots and Harmonic scissors was used to coagulate the liver bed. The abdomen was irrigated. The trocars were removed. The skin was closed using interrupted 3-0 Vicryl suture. Dermabond dressing were applied. The patient tolerated the procedure well.
[2017-05-13] MEDS ORDERED: diphenhydrAMINE 50 MG/ML 1 ML VIAL IVP ONE (10:23)
[2017-05-13] MEDS: HYDROmorphone 1 MG/ML 1 ML SYRINGE IVP PRN ×2 (10:26→10:42)
[2017-05-13] MEDS ORDERED: METOCLOPRAMIDE 5 MG/ML 2 ML VIAL IVP ONE (10:34)
[2017-05-13] MEDS ORDERED: HYDROcodone/APAP 7.5-325MG 1 EACH TAB PO ONE (11:08)
[2017-05-13 11:49] VITALS: BP 110/51; PULSE 71
== END 2017-05-13 12:09 | disposition home or self-care (01) ==
LOC: OR 07:35
PROVIDERS: ATTEND Surgery
DX: K81.1 Chronic cholecystitis (principal); R10.32 Left lower quadrant pain; K57.30 Diverticulosis of large intestine without perforation or abscess without bleeding; F41.9 Anxiety disorder, unspecified; F31.9 Bipolar disorder, unspecified; Z79.899 Other long term (current) drug therapy; Z90.710 Acquired absence of both cervix and uterus; Z98.84 Bariatric surgery status
CPT/HCPCS: 47562; 45378; 88304; J2250; J1200; J1644; J1100; J2710; J2765; J0690; J2405; J2001; J3010; J1885; J1170; J0330; J2704

== ENCOUNTER → 2017-07-29 | Outpatient (CLI) | payer OTHER | END | disposition home or self-care (01) | LOC: LABWHC1 15:52 | DX: Z51.81 Encounter for therapeutic drug level monitoring (principal) | CPT/HCPCS: 80306 ==

== ENCOUNTER → 2017-07-31 | Outpatient (CLI) | payer OTHER | END | disposition home or self-care (01) | LOC: LABWHC1 12:31 | DX: Z13.9 Encounter for screening, unspecified (principal) | CPT/HCPCS: 80307; 80346 ==

== ENCOUNTER 2022-02-20 15:27 | Emergency (ER) | payer BC ==
[2022-02-20 15:32] VITALS: BP 118/64; PULSE 78; RESP 18; TEMP 98.1
--- NOTE | 2022-02-20 18:04 | ED ---
Abdominal Pain HPI - General Chief Complaint: Abdominal Pain Stated Complaint: ENT,Dr Gilmore Time Seen by Provider: 02/20/22 17:35 Source: patient Mode of arrival: ambulatory Limitations: no limitations - History of Present Illness Initial Comments: Patient is a 51-year-old female presenting with chief complaint of "I feel like my lap band slipped". Patient states that for the past few days she has had a sensation that her food is getting stuck in her throat. She has been salivating excessively, and feels a fullness in her chest as if food is sitting in her throat. Patient had lap band surgery in [address] Gilmore, she has not had this before. She denies any abdominal pain, chest pain, shortness of breath, fever, chills, nausea, vomiting, URI-like symptoms, cough, diarrhea, constipation, hematochezia, melena. - Related Data Home Medications Medication Instructions Recorded Confirmed LORazepam [Ativan] 1 mg PO HS 04/20/17 02/20/22 Omeprazole 20 mg PO DAILY 02/20/22 02/20/22 lamoTRIgine [LaMICtal] 100 mg PO BID 02/20/22 02/20/22 Previous Rx's Medication Instructions Recorded Scopolamine [Scopolamine 1 MG/72 1 patch TRANSDERM Q72H #1 patch 02/20/22 HR patch] Allergies Allergy/AdvReac Type Severity Reaction Status Date / Time No Known Allergies Allergy Verified 02/20/22 19:16 Review of Systems ROS Statement: Those systems with pertinent positive or pertinent negative responses have been documented in the HPI. ROS Other: All systems not noted in ROS Statement are negative. Past Medical History Past Medical History: No Reported History History of Any Multi-Drug Resistant Organisms: None Reported Past Surgical History: Bariatric Surgery, Hysterectomy Additional Past Surgical History / Comment(s): thyroid biopsy /benign Past Anesthesia/Blood Transfusion Reactions: No Reported Reaction Past Psychological History: Anxiety, Bipolar, Depression Smoking Status: Never smoker Past Alcohol Use History: None Reported Past Drug Use History: None Reported - Past Family History Father Family Medical History: No Reported History General Exam Limitations: no limitations General appearance: alert, in no apparent distress Head exam: Present: atraumatic, normocephalic, normal inspection Eye exam: Present: normal appearance, EOMI. Absent: scleral icterus ENT exam: Present: normal exam, normal oropharynx (No erythema or midline shift), mucous membranes moist Neck exam: Present: normal inspection Respiratory exam: Present: normal lung sounds bilaterally. Absent: respiratory distress, wheezes, rales, rhonchi, stridor Cardiovascular Exam: Present: regular rate, normal rhythm, normal heart sounds. Absent: systolic murmur, diastolic murmur, rubs, gallop, clicks Neurological exam: Present: alert, oriented X3, CN II-XII intact Psychiatric exam: Present: normal affect, normal mood Skin exam: Present: warm, dry, intact, normal color. Absent: rash Course Vital Signs 02/20/22 15:31 Temperature 98.1 F Pulse Rate 78 Respiratory 18 Rate Blood Pressure 118/64 O2 Sat by Pulse 98 Oximetry Medical Decision Making - Medical Decision Making Patient is a 51-year-old female presenting with chief complaint of difficulty swallowing and "I feel like food is getting stuck in my throat". Patient had lap band surgery in [address] Gilmore. Patient states that "I feel like the lap band slipped". She denies any abdominal pain, chest pain, shortness of breath, fever, chills, sore throat, odynophagia, voice changes. Examination there is normal posterior pharynx, no erythema or midline shift. Heart and lungs are clear to auscultation. KUB and chest x-ray shows no acute abnormality. I spoke with Dr. Gilmore who stated that as long as she can tolerate a clear liquid diet she was able to follow up in clinic with him on Wednesday. Patient is able to swallow and tolerate a clear liquid diet at this time. She was prescribed scopolamine patches to help with her secretions. Report back to ER if any new or worsening symptoms. I discussed return parameters alarm symptoms. Answered all questions. Follow-up with Dr. Gilmore on Wednesday. Patient conveyed verbal understanding and agreed to the plan. I discussed this case with my attending Dr. Vásquez. Disposition Clinical Impression: History of laparoscopic adjustable gastric banding, Dysphagia Disposition: HOME SELF-CARE Condition: Good Instructions (If sedation given, give patient instructions): Clear Liquid Diet (ED) Additional Instructions: Follow clear liquid diet until cleared by Dr. Gilmore. Follow-up with him in the clinic on Wednesday morning. Report back to ER with any new or worsening symptoms. Take medication as prescribed. Stay well-hydrated Prescriptions: Scopolamine [Scopolamine 1 MG/72 HR patch] 1 patch TRANSDERM Q72H #1 patch Is patient prescribed a controlled substance at d/c from ED?: No Referrals: Cliff Gilmore MD [STAFF PHYSICIAN] - 02/23/22 Errol Triplett MD [Primary Care Provider] - 02/23/22 Time of Disposition: 19:26
--- NOTE | 2022-02-20 19:00 | XR ---
EXAMINATION TYPE: XR abdomen acute w cxr DATE OF EXAM: 02/20/2022 COMPARISON: 06/18/2013 HISTORY: Dysphagia TECHNIQUE: 5 views FINDINGS: Heart and mediastinum are normal. Lungs are clear of infiltrate. There is gastric bariatric surgery. Bowel gas pattern is normal. No sign of intestinal obstruction or pneumoperitoneum. Fecal p attern is normal. There are no calcifications over the kidneys. IMPRESSION: Nonacute abdomen. No active cardiopulmonary disease. No adverse change.
== END 2022-02-20 19:35 | disposition home or self-care (01) ==
LOC: EC 15:27
DX: R13.10 Dysphagia, unspecified (principal)
CPT/HCPCS: 74022; 99284

== ENCOUNTER → 2022-02-20 | Outpatient (CLI) | payer BC ==
[2022-02-20 18:48] LABS: T4, Free (Free Thyroxine) 1.07 ng/dL (0.800-1.800)
== END | disposition home or self-care (01) ==
LOC: LABWHC1 11:03
PROVIDERS: ATTEND Family Medicine
DX: I10 Essential (primary) hypertension (principal); K21.9 Gastro-esophageal reflux disease without esophagitis
CPT/HCPCS: 36415; 84439; 84443

== ENCOUNTER → 2022-02-23 | Outpatient (CLI) | payer BC ==
[2022-02-23 15:25] VITALS: BP 143/80; PULSE 65; TEMP 98.7; BMI 31.4
--- NOTE | 2022-02-23 15:31 | P.HPBAR ---
Bariatric H&P - History & Physicial H&P Date: 02/23/22 History & Physicial: Visit/CC: lap band Patient initial contact: Initial weight: Initial weight in pounds: Height: 5 ft 3 in Initial BMI: Last weight: Current weight: 80.377 kg Current weight in pounds: 177.20 Current BMI: 31.4 [place] body weight (based on NIH guidelines): 52.163 kg Excess body weight loss: The patient is a 51 year-old F who presents for Bariatric Assessment. Patient presents today for LAP-BAND adjustment. She has had complaints of some dysphagia over the weekend. Past Medical History Past Medical History: No Reported History History of Any Multi-Drug Resistant Organisms: None Reported Past Surgical History: Bariatric Surgery, Cholecystectomy, Hysterectomy Additional Past Surgical History / Comment(s): thyroid biopsy /benign, lap band Past Anesthesia/Blood Transfusion Reactions: No Reported Reaction Past Psychological History: Anxiety, Bipolar, Depression Smoking Status: Never smoker Past Alcohol Use History: None Reported Past Drug Use History: None Reported - Past Family History Father Family Medical History: No Reported History Surgical - Exam Vital Signs Temp Pulse BP 98.7 F 65 143/80 02/23/22 15:20 02/23/22 15:20 02/23/22 15:20 - General well developed, well nourished, no distress - Eyes PERRL - ENT normal pinna - Neck no masses - Respiratory normal expansion - Cardiovascular Rhythm: regular - Abdomen Abdomen: soft, non tender Bariatric Assessment & Plan Plan: Patient LAP-BAND was adjusted. She has 6 mL removed the band. She currently is 0 mL in the band. She'll follow-up in 2 weeks. Bariatric Checklist Checklist: Plan: Checklist: EGD: 1. Hiatal hernia: 2. H. Pylori: HgbA1c: Vitamin D: Smoking: Never smoker Primary care physician referral: Dr. Garcia Psychiatry clearance: Cardiology clearance: Sleep study: Diet journal: VTE risk score: VTE risk level: Rehab needs at discharge:
== END | disposition home or self-care (01) ==
LOC: BARWHC3 14:53
PROVIDERS: ATTEND Surgery
DX: Z48.815 Encounter for surgical aftercare following surgery on the digestive system (principal)
CPT/HCPCS: 99212

== ENCOUNTER 2022-02-27 12:43 | Emergency (ER) | payer BC ==
[2022-02-27 12:46] VITALS: BP 129/69; PULSE 68; RESP 16; TEMP 98
--- NOTE | 2022-02-27 13:00 | ED ---
General Adult HPI - General Chief complaint: Skin/Abscess/Foreign Body Stated complaint: Rash Time Seen by Provider: 02/27/22 12:50 Source: patient, RN notes reviewed Mode of arrival: ambulatory Limitations: no limitations - History of Present Illness Initial comments: Patient is a pleasant 51-year-old female presenting to the emergency department with rash. Onset of symptoms was just a couple hours ago. Patient did take a nap and woke up with rash on her right ankle. Patient denies any itching. Patient denies any pain or burning. No history of similar symptoms previously. Rash is red. No additional lesions. Rash is slightly raised. No bug bites or trauma. No new exposure. - Related Data Home Medications Medication Instructions Recorded Confirmed LORazepam [Ativan] 1 mg PO HS 04/20/17 02/23/22 Omeprazole 20 mg PO DAILY 02/20/22 02/23/22 lamoTRIgine [LaMICtal] 100 mg PO BID 02/20/22 02/23/22 Previous Rx's Medication Instructions Recorded Scopolamine [Scopolamine 1 MG/72 1 patch TRANSDERM Q72H #1 patch 02/20/22 HR patch] Cephalexin [Keflex] 500 mg PO QID #40 cap 02/27/22 predniSONE [Deltasone] 20 mg PO BID #10 tab 02/27/22 Allergies Allergy/AdvReac Type Severity Reaction Status Date / Time No Known Allergies Allergy Verified 02/27/22 12:46 Review of Systems ROS Statement: Those systems with pertinent positive or pertinent negative responses have been documented in the HPI. ROS Other: All systems not noted in ROS Statement are negative. Constitutional: Denies: fever Eyes: Denies: eye pain ENT: Denies: ear pain Respiratory: Denies: cough, dyspnea Cardiovascular: Denies: chest pain Endocrine: Denies: fatigue Gastrointestinal: Denies: abdominal pain Genitourinary: Denies: dysuria Skin: Reports: as per HPI, rash Past Medical History Past Medical History: No Reported History History of Any Multi-Drug Resistant Organisms: None Reported Past Surgical History: Bariatric Surgery, Cholecystectomy, Hysterectomy Additional Past Surgical History / Comment(s): thyroid biopsy /benign, lap band Past Anesthesia/Blood Transfusion Reactions: No Reported Reaction Past Psychological History: Anxiety, Bipolar, Depression Smoking Status: Never smoker Past Alcohol Use History: None Reported Past Drug Use History: None Reported - Past Family History Father Family Medical History: No Reported History General Exam Limitations: no limitations General appearance: alert, in no apparent distress Head exam: Present: normocephalic Respiratory exam: Present: normal lung sounds bilaterally Cardiovascular Exam: Present: regular rate, normal rhythm Extremities exam: Absent: calf tenderness Neurological exam: Present: alert Psychiatric exam: Present: normal affect, normal mood Skin exam: Present: other (Right lower leg with patchy erythematous appearance in the lower third of the leg, approximately 4-5 cm. There is some posterior involvement as well however minimal. Rash is slightly raised and does kaila. No vesicles or pustules. No tenderness.) Course Vital Signs 02/27/22 12:44 Temperature 98 F Pulse Rate 68 Respiratory 16 Rate Blood Pressure 129/69 O2 Sat by Pulse 99 Oximetry Medical Decision Making - Medical Decision Making Etiology of rash is unclear, but likely to be ALLERGIC more than infectious. Patient will be started with steroids however will also be given antibiotics for potential for cellulitis. Patient given warning signs to look for for potential shingles infection Disposition Clinical Impression: Urticaria Disposition: HOME SELF-CARE Condition: Stable Instructions (If sedation given, give patient instructions): Urticaria (ED), Cellulitis (ED) Additional Instructions: Please do follow-up with your primary care physician in the next day or 2 for recheck. Return for appearance of lesions including vesicles or pustules, pain, increased rash, fever, worsening symptoms or other concerns. Prescriptions have been sent to pharmacy Prescriptions: predniSONE [Deltasone] 20 mg PO BID #10 tab Cephalexin [Keflex] 500 mg PO QID #40 cap Is patient prescribed a controlled substance at d/c from ED?: No Referrals: Errol Triplett MD [Primary Care Provider] - 1-2 days Time of Disposition: 12:59
== END 2022-02-27 13:16 | disposition home or self-care (01) ==
LOC: EC 12:43
DX: L50.9 Urticaria, unspecified (principal)
CPT/HCPCS: 99282

== ENCOUNTER → 2022-03-09 | Outpatient (CLI) | payer BC ==
[2022-03-09 14:47] VITALS: BP 155/90; PULSE 71; TEMP 98.3; BMI 31.8
--- NOTE | 2022-03-20 11:12 | P.HPBAR ---
Bariatric H&P - History & Physicial H&P Date: 03/09/22 History & Physicial: Visit/CC: lap band f/u Patient initial contact: Initial weight: Initial weight in pounds: Height: 5 ft 3 in Initial BMI: Last weight: Current weight: 81.647 kg Current weight in pounds: 180.00 Current BMI: 31.8 [place] body weight (based on NIH guidelines): 52.163 kg Excess body weight loss: The patient is a 51 year-old F who presents for Bariatric Assessment. Patient presents today for follow-up. She has some complaints of GERD. She's had a slight gain her weight. Past Medical History Past Medical History: No Reported History History of Any Multi-Drug Resistant Organisms: None Reported Past Surgical History: Bariatric Surgery, Cholecystectomy, Hysterectomy Additional Past Surgical History / Comment(s): thyroid biopsy /benign, lap band Past Anesthesia/Blood Transfusion Reactions: No Reported Reaction Past Psychological History: Anxiety, Bipolar, Depression Smoking Status: Never smoker Past Alcohol Use History: None Reported Past Drug Use History: None Reported - Past Family History Father Family Medical History: No Reported History Surgical - Exam Vital Signs Temp Pulse BP 98.3 F 71 155/90 03/09/22 14:43 03/09/22 14:43 03/09/22 14:43 - General well developed, well nourished, no distress - Eyes PERRL - ENT normal pinna - Neck no masses - Respiratory normal expansion - Cardiovascular Rhythm: regular - Abdomen Abdomen: soft, non tender Bariatric Assessment & Plan Plan: Resolving morbid obesity. Patient's GERD is minimal and will be observed. She'll follow-up in 4 weeks. Bariatric Checklist Checklist: Plan: Checklist: EGD: 1. Hiatal hernia: 2. H. Pylori: HgbA1c: Vitamin D: Smoking: Never smoker Primary care physician referral: Dr. Garcia Psychiatry clearance: Cardiology clearance: Sleep study: Diet journal: VTE risk score: VTE risk level: Rehab needs at discharge:
== END | disposition home or self-care (01) ==
LOC: BARWHC3 13:52
PROVIDERS: ATTEND Surgery
DX: E66.01 Morbid (severe) obesity due to excess calories (principal); K21.9 Gastro-esophageal reflux disease without esophagitis
CPT/HCPCS: 99211

== ENCOUNTER → 2022-03-10 | Outpatient (CLI) | payer BC ==
--- NOTE | 2022-03-10 09:47 | FL ---
EXAMINATION TYPE: FL barium swallow DATE OF EXAM: 03/10/2022 HISTORY: Dysphagia. COMPARISON: X-ray dated 02/20/2022 TECHNIQUE: A double contrast esophagram is performed utilizing air and barium. A total of 2 minutes and 15 seconds of fluoroscopic time was utilized during procedure and 52 spot images obtained. FINDINGS: The esophagus shows normal motility and emptying into the stomach. No evidence of sizable hiatal her gladys or stricture noted. Questionable mild gastroesophageal reflux was seen during real time performan ce of this study. Questionable indentation of the midportion of the thoracic esophagus likely by a mediastinal vessel. Further CT assessment can be considered if clinically required. Known gastric lap band, apparently in good position. Unremarkable visualized portion of the stomach. IMPRESSION: Suspected mild gastroesophageal reflux. Mild indentation of the midportion of the thoracic esophagus likely by a mediastinal vessel. This can be further assessed by a CT scan of the chest. Other finding s as described above.
== END | disposition home or self-care (01) ==
LOC: RADFLMAIN 08:16
PROVIDERS: ATTEND Surgery
DX: R13.10 Dysphagia, unspecified (principal)
CPT/HCPCS: 74220

== ENCOUNTER 2022-03-12 09:33 | Day surgery (SDC) | payer BC ==
[2022-03-11 08:21] VITALS: BMI 30.9
[~2022-03-12 09:33] MED LIST changes: -DEXAMETHASONE SOD PHOSPHATE 10 MG/ML 1 ML VIAL IV ONE; -HEPARIN SODIUM,PORCINE 5,000 UNIT/ML 1 ML VIAL SQ ONE; +LIDOCAINE 1% (10MG/ML) FOR IV START INTRADERMA PRN; -LIDOCAINE 1% 20 ML VIAL (10MG/ML) FOR IV START INTRADERMA PRN; -MIDAZOLAM 2 MG/2 ML VIAL IV PRN; -ONDANSETRON 4 MG/2 ML VIAL IVP ONE; -SCOPOLAMINE 1.5MG/72HR PATCH TRANSDERM ONE; -ceFAZolin 2 GM in SODIUM CHLORIDE 0.9% 100 ML IVPB ONE
[2022-03-12 10:26] LABS: Glucose,Whole Blood 89 mg/dL (70-110)
[2022-03-12 10:28] VITALS: TEMP 98
[2022-03-12] MEDS ORDERED: LIDOCAINE 2% INJ 20 MG/ML (2 ML VIAL) ONE (11:13)
[2022-03-12] MEDS ORDERED: PROPOFOL 10 MG/ML 20 ML VIAL IV ONE (11:13)
--- NOTE | 2022-03-12 11:19 | P.GSHP ---
History of Present Illness H&P Date: 03/12/22 Chief Complaint: GERD This a 48-year-old female who presents today for EGD. She's had issues with GERD. Past Medical History Past Medical History: No Reported History Additional Past Medical History / Comment(s): SEEN IN ER 02/20/22 OR POSSIBLE LAPBAND SLIPPING, SEEN 02/27/22 FOR RASH TO RIGHT ANKLE-RESOLVED History of Any Multi-Drug Resistant Organisms: None Reported Past Surgical History: Bariatric Surgery, Cholecystectomy, Hysterectomy Additional Past Surgical History / Comment(s): thyroid biopsy /benign, lap band. EGD Past Anesthesia/Blood Transfusion Reactions: No Reported Reaction Smoking Status: Never smoker - Past Family History Father Family Medical History: No Reported History Medications and Allergies Home Medications Medication Instructions Recorded Confirmed Type LORazepam [Ativan] 1 mg PO HS 04/20/17 03/12/22 History Omeprazole 20 mg PO DAILY 02/20/22 03/12/22 History lamoTRIgine [LaMICtal] 100 mg PO BID 02/20/22 03/12/22 History Allergies Allergy/AdvReac Type Severity Reaction Status Date / Time No Known Allergies Allergy Verified 03/12/22 10:28 Surgical - Exam Vital Signs Temp Pulse Resp BP Pulse Ox 98 F 69 16 121/60 97 03/12/22 10:17 03/12/22 10:17 03/12/22 10:17 03/12/22 10:17 03/12/22 10:17 - General well developed, well nourished, no distress - Eyes PERRL - ENT normal pinna - Neck no masses - Respiratory normal expansion - Cardiovascular Rhythm: regular - Abdomen Abdomen: soft, non tender Assessment and Plan Assessment: GERD. We'll perform EGD.
--- NOTE | 2022-03-12 11:26 | P.OP ---
Date of Procedure: 03/12/22 Preoperative Diagnosis: GERD Postoperative Diagnosis: Antral gastritis Normal LAP-BAND Procedure(s) Performed: EGD Anesthesia: MAC Surgeon: Cliff Gilmore Pathology: other (Antrum) Condition: stable Disposition: PACU Description of Procedure: The patient's placed on the endoscopy table in the lateral position. She received IV sedation. The gastroscope placed oropharynx passed in the esophagus and into the stomach. Scope was then placed through the pylorus. The first and second portion of the duodenum appeared normal. The scope was then brought back the antrum this. Mildly inflamed. The scope was then retroflexed and the remainder the stomach appeared normal. The patient had a previously placed LAP- BAND device this without evidence of inflammation or erosion. The GE junction was at 40 cm. The distal esophagus appeared normal. The proximal esophagus appeared normal. Scope withdrawn for patient.
[2022-03-12 11:32] VITALS: BP 112/74
[2022-03-12 11:48] VITALS: PULSE 69; RESP 16
== END 2022-03-12 12:15 | disposition home or self-care (01) ==
LOC: ORWHC2ENDO 09:33
PROVIDERS: ATTEND Surgery
DX: K29.50 Unspecified chronic gastritis without bleeding (principal); K21.9 Gastro-esophageal reflux disease without esophagitis; Z90.49 Acquired absence of other specified parts of digestive tract; Z98.84 Bariatric surgery status; Z79.899 Other long term (current) drug therapy; E66.01 Morbid (severe) obesity due to excess calories; Z68.32 Body mass index [BMI] 32.0-32.9, adult
CPT/HCPCS: 88305; 43239; J2704; J2001

== ENCOUNTER → 2022-03-13 | Outpatient (CLI) | payer BC ==
[2022-03-13 19:05] LABS: Basophils # (A) 0.03 X 10*3/uL (0.00-0.10); Basophils % (A) 0.3 %; Eosinophils % (A) 1.1 %; HGB 12.4 g/dL (12.0-15.0); Immature Grans, Automated 0.7 %; Lymphocytes % (A) 18.2 %; MCH 28.4 pg (27.0-32.0); MCV 91.7 fL (80.0-97.0); Mean Platelet Volume 10.1 fL (9.5-12.2); Monocytes # (A) 0.36 X 10*3/uL (0.20-1.00); Monocytes % (A) 4.1 %; NRBC Per 100 WBC 0 /100 WBCS (0.0-0.0); Neutrophils # (A) 6.66 X 10*3/uL (1.80-7.70); Neutrophils % (A) 75.6 %; Platelet Count 323 X 10*3/uL (140-440); RBC 4.36 X 10*6/uL (4.10-5.20); RDW 12.6 % (11.5-14.5); WBC 8.81 X 10*3/uL (4.50-10.00)
[2022-03-13 19:59] LABS: African American GFR (CKD) 97.6 (60.0-200.0); Albumin 4.2 g/dL (3.8-4.9); Albumin/Globulin Ratio 1.75 (1.60-3.17); Anion Gap 12.7 mmol/L (10.00-18.00); BUN/Creat Ratio 9.88 Ratio (12.00-20.00); Blood Urea Nitrogen 7.9 mg/dL (9.0-27.0); Calcium 9.3 mg/dL (8.7-10.3); Carbon Dioxide 23.3 mmol/L (20.0-27.5); Globulin 2.4 g/dL (1.6-3.3); Non-African American GFR(CKD) 84.2 (60.0-200.0); Potassium 4.8 mmol/L (3.5-5.5); Total Bilirubin 0.2 mg/dL (0.30-1.20); Total Protein 6.6 g/dL (6.2-8.2)
== END | disposition home or self-care (01) ==
LOC: LABPAT 11:47
PROVIDERS: ATTEND Surgery
DX: Z01.812 Encounter for preprocedural laboratory examination (principal)
CPT/HCPCS: 80053; 85025; 93005

== ENCOUNTER 2022-03-17 08:59 | Day surgery (SDC) | payer BC ==
[2022-03-12 15:51] VITALS: BMI 32.1
[~2022-03-17 08:59] MED LIST changes: +DEXAMETHASONE SOD PHOSPHATE 4 MG/ML 1 ML VIAL IV ONE; +MIDAZOLAM 2 MG/2 ML VIAL IV PRN
[2022-03-17] MEDS: ONDANSETRON 4 MG/2 ML VIAL IVP ONE ×2 (09:40→12:10)
[2022-03-17] MEDS ORDERED: HEPARIN SODIUM,PORCINE/PF 5,000 UNIT/0.5 ML SYRINGE SQ ONE (10:30)
[2022-03-17] MEDS ORDERED: HEPARIN SODIUM,PORCINE 5,000 UNIT/ML 1 ML VIAL SQ ONE (10:32)
--- NOTE | 2022-03-17 10:34 | P.GSHP ---
History of Present Illness H&P Date: 03/17/22 Chief Complaint: Dysphagia Is a 48-year-old female with mild dysphagia from her LAP-BAND. She'll stay for removal of LAP-BAND system. Past Medical History Past Medical History: GERD/Reflux Additional Past Medical History / Comment(s): SEEN IN ER 02/20/22 for POSSIBLE LAPBAND SLIPPING, SEEN 02/27/22 FOR RASH TO RIGHT ANKLE-RESOLVED. c/o excess saliva History of Any Multi-Drug Resistant Organisms: None Reported Past Surgical History: Bariatric Surgery, Cholecystectomy, Hysterectomy Additional Past Surgical History / Comment(s): thyroid biopsy /benign, lap band. EGD Past Anesthesia/Blood Transfusion Reactions: No Reported Reaction Smoking Status: Never smoker - Past Family History Father Family Medical History: No Reported History Medications and Allergies Home Medications Medication Instructions Recorded Confirmed Type LORazepam [Ativan] 1 mg PO HS 04/20/17 03/17/22 History Omeprazole 20 mg PO DAILY 02/20/22 03/17/22 History lamoTRIgine [LaMICtal] 100 mg PO BID 02/20/22 03/17/22 History Allergies Allergy/AdvReac Type Severity Reaction Status Date / Time No Known Allergies Allergy Verified 03/17/22 09:21 Surgical - Exam Vital Signs Temp Pulse Resp BP Pulse Ox 98.3 F 73 16 125/76 98 03/17/22 09:23 03/17/22 09:23 03/17/22 09:23 03/17/22 09:23 03/17/22 09:23 - General well developed, well nourished, no distress - Eyes PERRL - ENT normal pinna - Neck no masses - Respiratory normal expansion - Cardiovascular Rhythm: regular - Abdomen Abdomen: soft, non tender Assessment and Plan Assessment: Dysphagia. We'll perform removal of LAP-BAND system.
[2022-03-17] MEDS ORDERED: fentaNYL (PF) 50 MCG/ML 2 ML AMP ONE (10:55)
[2022-03-17] MEDS ORDERED: LIDOCAINE 2% INJ 20 MG/ML (2 ML VIAL) ONE (10:55)
[2022-03-17] MEDS ORDERED: ROCURONIUM 10 MG/ML (5 ML VIAL) IV ONE (10:55)
[2022-03-17] MEDS ORDERED: GLYCOPYRROLATE 0.2 MG/ML 2 ML VIAL ONE (10:55)
[2022-03-17] MEDS ORDERED: NEOSTIGMINE 1 MG/ML 10 ML VIAL ONE (10:55)
[2022-03-17] MEDS ORDERED: PROPOFOL 10 MG/ML 20 ML VIAL IV ONE (10:55)
[2022-03-17] MEDS ORDERED: SUCCINYLCHOLINE CHLORIDE 100 MG/5 ML SYR IV ONE (10:55)
[2022-03-17] MEDS ORDERED: KETOROLAC 15 MG/ML 1 ML VIAL ONE (10:55)
[2022-03-17] MEDS ORDERED: MIDAZOLAM 2 MG/2 ML VIAL ONE (10:55)
[2022-03-17] MEDS ORDERED: BUPIVACAIN-EPI 0.25%-1:200,000 30 ML VIAL SQ ONE (11:30)
[2022-03-17] MEDS ORDERED: LACTATED RINGERS 1,000 ML IV ONE (11:49)
--- NOTE | 2022-03-17 11:58 | P.OP ---
Date of Procedure: 03/17/22 Preoperative Diagnosis: Dysphagia Postoperative Diagnosis: Dysphagia Procedure(s) Performed: Removal of LAP-BAND system Anesthesia: RENETTA Surgeon: Cliff Gilmore Estimated Blood Loss (ml): 5 Pathology: none sent Condition: stable Disposition: PACU Description of Procedure: The patient's placed the operative table in the supine position she received general endotracheal tube anesthesia. Her abdomen was prepped and draped usual fashion. The skin was anesthetized at the port sites. Using 11 blade the skin was incised at the LAP-BAND port site and then using electrocautery and blunt sharp dissection the LAP-BAND port was dissected free. The PEG tube was then cut and the port was withdrawn. Using a 5 mm optical trocar under direct visualization. UNDER. The abdomen was then insufflated after adequate insufflation the laparoscope placed. Cavity. Next a 5 mm trochars placed in the right lateral and left lateral position. The adhesions [place] device were lysed using sharp dissection. The LAP-BAND was then cut and then withdrawn from the stomach. The LAP-BAND was extracted through the epigastric port site. There is no bleeding seen. The trochars withdrawn. The fascia was then closed with 0 Ethibond suture at the epigastric trocar site. The skin was closed interrupted 3-0 Monocryl suture. Dermabond was applied. Patient top she will was sent to recovery room in stable condition.
[2022-03-17 12:04] VITALS: TEMP 97.7
[2022-03-17] MEDS: HYDROmorphone 0.5 MG/0.5 ML SYRINGE IVP PRN ×2 (12:22→12:34)
[2022-03-17 13:06] VITALS: RESP 18
[2022-03-17 13:25] VITALS: BP 118/84; PULSE 88
== END 2022-03-17 13:32 | disposition home or self-care (01) ==
LOC: OR 08:59
PROVIDERS: ATTEND Surgery
DX: K95.09 Other complications of gastric band procedure (principal); R13.10 Dysphagia, unspecified; K21.9 Gastro-esophageal reflux disease without esophagitis; E16.4 Increased secretion of gastrin; Z90.49 Acquired absence of other specified parts of digestive tract; F31.9 Bipolar disorder, unspecified; Z90.710 Acquired absence of both cervix and uterus; Z98.890 Other specified postprocedural states; Z79.899 Other long term (current) drug therapy
CPT/HCPCS: 43774; J2250; J1644; J1100; J2710; J0690; J2405; J3010; J1885; J0330; J2704; J1170; J1790; J2001

== ENCOUNTER → 2022-03-30 | Outpatient (CLI) | payer BC ==
[2022-03-30 15:36] VITALS: BP 128/81; PULSE 72; TEMP 98.2; BMI 33.5
--- NOTE | 2022-04-07 16:32 | P.HPBAR ---
Bariatric H&P - History & Physicial H&P Date: 03/30/22 History & Physicial: Visit/CC: lap band removal follow up Patient initial contact: Initial weight: Initial weight in pounds: Height: 5 ft 3 in Initial BMI: Last weight: Current weight: 85.729 kg Current weight in pounds: 189.00 Current BMI: 33.5 [place] body weight (based on NIH guidelines): 52.163 kg Excess body weight loss: The patient is a 51 year-old F who presents for Bariatric Assessment. Patient presents today for bariatric follow-up. She has some complaints of GERD. Past Medical History Past Medical History: GERD/Reflux Additional Past Medical History / Comment(s): SEEN IN ER 02/20/22 for POSSIBLE LAPBAND SLIPPING, SEEN 02/27/22 FOR RASH TO RIGHT ANKLE-RESOLVED. c/o excess saliva History of Any Multi-Drug Resistant Organisms: None Reported Past Surgical History: Bariatric Surgery, Cholecystectomy, Hysterectomy Additional Past Surgical History / Comment(s): thyroid biopsy /benign, lap band. lap band removal 03-23-22. EGD Past Anesthesia/Blood Transfusion Reactions: No Reported Reaction Past Psychological History: Anxiety, Bipolar, Depression Smoking Status: Never smoker Past Alcohol Use History: None Reported Past Drug Use History: None Reported - Past Family History Father Family Medical History: No Reported History Surgical - Exam Vital Signs Temp Pulse BP 98.2 F 72 128/81 03/30/22 15:34 03/30/22 15:34 03/30/22 15:34 - General well developed, well nourished, no distress - Eyes PERRL, normal ocular movement - ENT normal pinna - Neck no masses - Respiratory normal expansion - Cardiovascular Rhythm: regular - Abdomen Abdomen: soft, non tender Bariatric Assessment & Plan Plan: Patient is a well from a surgical standpoint. Her GERD is minimal will be observed. Her BMI is improving. Her BMI is 33.5. Bariatric Checklist Checklist: Plan: Checklist: EGD: 1. Hiatal hernia: 2. H. Pylori: HgbA1c: Vitamin D: Smoking: Never smoker Primary care physician referral: Dr. Garcia Psychiatry clearance: Cardiology clearance: Sleep study: Diet journal: VTE risk score: VTE risk level: Rehab needs at discharge:
== END | disposition home or self-care (01) ==
LOC: BARWHC3 13:58
PROVIDERS: ATTEND Surgery
DX: Z48.815 Encounter for surgical aftercare following surgery on the digestive system (principal)
CPT/HCPCS: 99211

== ENCOUNTER → 2022-05-27 | Outpatient (CLI) | payer BC | END | disposition home or self-care (01) | LOC: LABWHC1 12:35 | PROVIDERS: ATTEND Family Medicine | DX: I10 Essential (primary) hypertension (principal); Z79.899 Other long term (current) drug therapy | CPT/HCPCS: 36415; 86038; 86225; 86235; 86431 ==

== ENCOUNTER → 2022-07-06 | Outpatient (CLI) | payer BC ==
[2022-07-06 14:43] VITALS: BP 145/82; PULSE 79; RESP 16; TEMP 98.4; BMI 37.0
== END | disposition home or self-care (01) ==
LOC: BARWHC3 13:57
PROVIDERS: ATTEND Surgery
DX: Z53.9 Procedure and treatment not carried out, unspecified reason (principal)
CPT/HCPCS: 99211

== ENCOUNTER → 2022-07-27 | Outpatient (CLI) | payer BC ==
[2022-07-27 23:02] LABS: Basophils # (A) 0.04 X 10*3/uL (0.00-0.10); Basophils % (A) 0.4 %; Eosinophils # (A) 0.28 X 10*3/uL (0.04-0.35); Eosinophils % (A) 2.9 %; HCT 40.2 % (37.2-46.3); HGB 12.9 g/dL (12.0-15.0); Immature Grans, Automated 0.5 %; Lymphocytes % (A) 20.6 %; MCH 29.6 pg (27.0-32.0); MCHC 32.1 g/dL (32.0-37.0); MCV 92.2 fL (80.0-97.0); Monocytes # (A) 0.61 X 10*3/uL (0.20-1.00); Monocytes % (A) 6.3 %; NRBC Per 100 WBC 0 /100 WBCS (0.0-0.0); Neutrophils # (A) 6.72 X 10*3/uL (1.80-7.70); Neutrophils % (A) 69.3 %; Platelet Count 332 X 10*3/uL (140-440); RBC 4.36 X 10*6/uL (4.10-5.20); RDW 13.2 % (11.5-14.5)
[2022-07-27 23:42] LABS: Albumin 4.4 g/dL (3.8-4.9); Albumin/Globulin Ratio 2.04 (1.60-3.17); Anion Gap 13.4 mmol/L (10.00-18.00); BUN/Creat Ratio 15.2 Ratio (12.00-20.00); Blood Urea Nitrogen 15.2 mg/dL (9.0-27.0); Calcium 9.2 mg/dL (8.7-10.3); Globulin 2.2 g/dL (1.6-3.3); Non-African American GFR(CKD) 63.8 (60.0-200.0); Potassium 4.6 mmol/L (3.5-5.5); Total Bilirubin 0.3 mg/dL (0.30-1.20); Total Protein 6.6 g/dL (6.2-8.2)
== END | disposition home or self-care (01) ==
LOC: LABPAT 14:08
PROVIDERS: ATTEND Surgery
DX: Z01.812 Encounter for preprocedural laboratory examination (principal)
CPT/HCPCS: 80053; 85025

== ENCOUNTER → 2022-07-27 | Outpatient (CLI) | payer BC ==
[2022-07-27 10:53] VITALS: BMI 38.9
[2022-07-27 13:57] VITALS: BP 135/82; PULSE 76; RESP 12; TEMP 98.5
--- NOTE | 2022-07-27 15:10 | P.HPBAR ---
Bariatric H&P - History & Physicial H&P Date: 07/27/22 History & Physicial: Visit/CC: pre surgical Patient initial contact: Initial weight: 94.801 kg Initial weight in pounds: 209.00 Height: 5 ft 3 in Initial BMI: 37.0 Last weight: Current weight: 99.564 kg Current weight in pounds: 219.50 Current BMI: 38.9 [place] body weight (based on NIH guidelines): 52.163 kg Excess body weight loss: The patient is a 52 year-old F who presents for Bariatric Assessment. She presents today for presurgical consultation. She is scheduled for sleeve gastrectomy in early August. Her current weight is 219 pounds. She had a previous Willam removal due to dysphagia. Past Medical History Past Medical History: GERD/Reflux Additional Past Medical History / Comment(s): SEEN IN ER 02/20/22 for POSSIBLE LAPBAND SLIPPING, SEEN 02/27/22 FOR RASH TO RIGHT ANKLE-RESOLVED. c/o excess saliva Band Removed 03/17/22. History of Any Multi-Drug Resistant Organisms: None Reported Past Surgical History: Bariatric Surgery, Cholecystectomy, Hysterectomy Additional Past Surgical History / Comment(s): thyroid biopsy /benign, lap band. lap band removal 03-23-22. EGD Past Anesthesia/Blood Transfusion Reactions: No Reported Reaction Past Psychological History: Anxiety, Bipolar, Depression Smoking Status: Never smoker Past Alcohol Use History: None Reported Past Drug Use History: None Reported - Past Family History Father Family Medical History: No Reported History Surgical - Exam Vital Signs Temp Pulse Resp BP 98.5 F 76 12 135/82 07/27/22 13:55 07/27/22 13:55 07/27/22 13:55 07/27/22 13:55 - General well developed, well nourished, no distress - Eyes PERRL - ENT normal pinna - Neck no masses - Respiratory normal expansion - Cardiovascular Rhythm: regular - Abdomen Abdomen: soft, non tender Bariatric Assessment & Plan Plan: Morbid obesity, BMI 39. Patient will be scheduled for sleeve gastrectomy in several weeks. Patient's excellent understanding of the sleeve gastrectomy with 1 over the risks and benefits of the procedure. Bariatric Checklist Checklist: Plan: Checklist: EGD: 1. Hiatal hernia: 2. H. Pylori: HgbA1c: Vitamin D: Smoking: Never smoker Primary care physician referral: Dr. Garcia Psychiatry clearance: Cardiology clearance: Sleep study: Diet journal: VTE risk score: VTE risk level: Rehab needs at discharge:
== END ==
LOC: BARWHC3 08:57
PROVIDERS: ATTEND Surgery
DX: Z71.3 Dietary counseling and surveillance (principal); E66.01 Morbid (severe) obesity due to excess calories; Z68.38 Body mass index [BMI] 38.0-38.9, adult
CPT/HCPCS: 97804; 99211

== ENCOUNTER 2022-08-17 10:01 | Day surgery (SDC) | payer BC ==
[~2022-08-17 10:01] MED LIST changes: +ENOXAPARIN 40 MG/0.4 ML SYRINGE SQ PRN; +HYDROmorphone 0.5 MG/0.5 ML SYRINGE IVP PRN; -LACTATED RINGERS 1,000 ML IV SCH; -MIDAZOLAM 2 MG/2 ML VIAL IV PRN; +ONDANSETRON 4 MG/2 ML VIAL IVP ONE; +SCOPOLAMINE 1 MG/72 HR PATCH TRANSDERM ONE
[2022-08-17] MEDS: LACTATED RINGERS 1,000 ML IV SCH ×2 (10:50→23:53)
--- NOTE | 2022-08-17 10:54 | P.GSHP ---
History of Present Illness H&P Date: 08/17/22 Chief Complaint: Morbid obesity This a 52-year-old female with history of morbid obesity. Her BMI is 39. Patient had previous laparoscopic band procedure. Her band was removed several months ago. Patient has developed increased weight gain. She presents today for laparoscopic sleeve gastrectomy. Her LAP-BAND was removed for recurrent GERD and dysphagia issues with her band. Past Medical History Past Medical History: GERD/Reflux, Sleep Apnea/CPAP/BIPAP Additional Past Medical History / Comment(s): C-PAP MACHINE, PAIN IN KNEES. History of Any Multi-Drug Resistant Organisms: None Reported Past Surgical History: Bariatric Surgery, Cholecystectomy, Hysterectomy Additional Past Surgical History / Comment(s): thyroid biopsy /benign, lap band. lap band removal 03-23-22. EGD Past Anesthesia/Blood Transfusion Reactions: No Reported Reaction Past Psychological History: Anxiety, Bipolar, Depression Smoking Status: Never smoker Past Alcohol Use History: Occasional Past Drug Use History: None Reported - Past Family History Father Family Medical History: No Reported History, Deep Vein Thrombosis (DVT) Daughter(s) Family Medical History: Deep Vein Thrombosis (DVT) Medications and Allergies Home Medications Medication Instructions Recorded Confirmed Type LORazepam [Ativan] 1 mg PO DIRECTED PRN 04/20/17 08/13/22 History lamoTRIgine [LaMICtal] 100 mg PO HS 02/20/22 08/13/22 History Citalopram Hydrobromide [CeleXA] 30 mg PO HS 07/06/22 08/13/22 History QUEtiapine FUMARATE [SEROquel] 25 mg PO HS 07/06/22 08/13/22 History Allergies Allergy/AdvReac Type Severity Reaction Status Date / Time No Known Allergies Allergy Verified 08/17/22 10:34 Surgical - Exam Vital Signs Temp Pulse Resp BP Pulse Ox 98.0 F 76 16 135/69 97 08/17/22 10:45 08/17/22 10:45 08/17/22 10:45 08/17/22 10:45 08/17/22 10:45 - General well developed, well nourished, no distress - Eyes PERRL - ENT normal pinna - Neck no masses - Respiratory normal expansion - Cardiovascular Rhythm: regular - Abdomen Abdomen: soft, non tender Assessment and Plan Assessment: Morbid obesity. History of LAP-BAND procedure. She will undergo laparoscopic sleeve gastrectomy. She is aware the risk of surgery including injury to the stomach liver spleen present aware of the risk of adhesions related to previous Willam surgery.
[2022-08-17] MEDS ORDERED: SODIUM CHLORIDE 0.9% 50 ML with ceFAZolin 2,000 MG IV ONE ×2 (12:04)
[2022-08-17] MEDS ORDERED: BUPIVACAIN-EPI 0.25%-1:200,000 30 ML VIAL SQ ONE ×2 (12:10→12:54)
[2022-08-17] MEDS ORDERED: LACTATED RINGERS 1,000 ML IV ONE (12:54)
[2022-08-17] MEDS ORDERED: HYDROcodone/APAP 15 ML SOLUTION PO PRN (13:00)
[2022-08-17] MEDS ORDERED: SIMETHICONE 40 MG/0.6 ML DROPS 2,000 MG/30 ML BOTTLE PO PRN (13:00)
[2022-08-17] MEDS ORDERED: ACETAMINOPHEN IV (For NPO) 1,000 MG in EMPTY BAG 1 BAG IVPB ONE (13:00)
[2022-08-17] MEDS ORDERED: HYDROmorphone 0.5 MG/0.5 ML SYRINGE IVP PRN (13:00)
[2022-08-17] MEDS ORDERED: NALOXONE 0.4 MG/ML 1 ML VIAL IV PRN (13:00)
[2022-08-17] MEDS ORDERED: HYOSCYAMINE ORAL DROPS 1.875 MG/15 ML BOTTLE PO PRN (13:00)
--- NOTE | 2022-08-17 13:00 | P.OP ---
Date of Procedure: 08/17/22 Preoperative Diagnosis: Morbid obesity, BMI 39 Postoperative Diagnosis: Morbid obesity, BMI 39 Procedure(s) Performed: Laparoscopic sleeve gastrectomy Anesthesia: RENETTA Surgeon: Cliff Gilmore Estimated Blood Loss (ml): 5 Pathology: other (Stomach) Condition: stable Disposition: PACU Description of Procedure: The patient was placed on the operating room table in the supine position. She received general anesthesia and then was placed in dorsal lithotomy position. Her abdomen was prepped and draped in sterile fashion. The skin incision sites were anesthetized 1% local Xylocaine. And then the skin was incised with an 11 blade in the left lateral position. Using a blade less trocar under direct visualization the peritoneal cavity was entered. The abdomen was insufflated and then a 5 mm laparoscope was placed into the peritoneal cavity. A 5 mm trocar was placed in the right epigastric, and right lateral position. A 15 mm trocar was placed in the supra-umbilical position and another 5 mm trocar was placed in the left lateral position. The left lateral lobe of the liver was retracted. The stomach was visualized. The greater curvature of the stomach was then dissected using the Harmonic scissors. The dissection occurred approximately 5 cm from the pylorus to the level of the left monika. There was no hiatal hernia seen. At this point a 40-[place] bougie dilator was placed the oropharynx and passed into the esophagus and into the stomach by the PLASTIC ROLLER. The sleeve gastrectomy was performed by using the powered echelon stapler with a seam guard buttress material. Sequential firings of the stapler were performed. The gastric remnant was then brought out through the 15 mm trocar site. The dilator was withdrawn. And a orogastric tube was replaced into the stomach. The stomach was insufflated with 200 mL of methylene blue normal saline. There was no evidence of extravasation. The abdomen was irrigated there is no bleeding seen. The Colin-Samantha device was used to close the 15 mm trocar with 0 Vicryl. Skin was closed with interrupted 3-0 Monocryl sutures once the trochars withdrawn. Dermabond dressing was applied. Patient was sent to recovery in stable condition.
[2022-08-17] MEDS: ALBUTEROL NEBULIZED 2.5 MG/3 ML INHALATION SCH ×2 (16:39→21:05)
[2022-08-17] MEDS: KETOROLAC 15 MG/ML 1 ML VIAL IVP SCH ×2 (17:40→23:49)
[2022-08-17] MEDS: 0.9% NACL WITH KCL 20 MEQ/L 1,000 ML IV SCH ×3 (17:40→23:53)
[2022-08-18 02:18] VITALS: TEMP 98.6
[2022-08-18] MEDS: KETOROLAC 15 MG/ML 1 ML VIAL IVP SCH ×2 (05:56→12:45)
[2022-08-18 07:20] VITALS: BP 113/64; PULSE 78; RESP 18
[2022-08-18] MEDS ORDERED: ENOXAPARIN 40 MG/0.4 ML SYRINGE SQ SCH (09:00)
[2022-08-18] MEDS ORDERED: PANTOPRAZOLE 40 MG/10 ML VIAL IV SCH (09:00)
[2022-08-18] MEDS: ALBUTEROL NEBULIZED 2.5 MG/3 ML INHALATION SCH ×2 (09:05→12:02)
[2022-08-18 09:15] LABS: Basophils # (A) 0.03 X 10*3/uL (0.00-0.10); Basophils % (A) 0.3 %; Eosinophils # (A) 0.03 X 10*3/uL (0.04-0.35); Eosinophils % (A) 0.3 %; HCT 37.6 % (37.2-46.3); HGB 12.4 g/dL (12.0-15.0); Immature Grans, Automated 0.4 %; Lymphocytes # (A) 2.16 X 10*3/uL (0.90-5.00); Lymphocytes % (A) 20.1 %; MCH 30.3 pg (27.0-32.0); MCV 91.9 fL (80.0-97.0); Mean Platelet Volume 10.2 fL (9.5-12.2); Monocytes # (A) 0.73 X 10*3/uL (0.20-1.00); Monocytes % (A) 6.8 %; NRBC Per 100 WBC 0 /100 WBCS (0.0-0.0); Neutrophils # (A) 7.78 X 10*3/uL (1.80-7.70); Neutrophils % (A) 72.1 %; Platelet Count 312 X 10*3/uL (140-440); RBC 4.09 X 10*6/uL (4.10-5.20); RDW 12.5 % (11.5-14.5); WBC 10.77 X 10*3/uL (4.50-10.00)
[2022-08-18 09:40] LABS: African American GFR (CKD) 96.9 (60.0-200.0); Anion Gap 14.7 mmol/L (10.00-18.00); Blood Urea Nitrogen 7.4 mg/dL (9.0-27.0); Calcium 8.4 mg/dL (8.7-10.3); Carbon Dioxide 19.3 mmol/L (20.0-27.5); Non-African American GFR(CKD) 83.6 (60.0-200.0); Phosphorus 3.3 mg/dL (2.4-5.1); Potassium 4.6 mmol/L (3.5-5.5)
[2022-08-18 11:42] VITALS: BMI 38.7
--- NOTE | 2022-08-18 11:43 | P.DS ---
Providers Date of admission: 08/17/22 13:01 Expected date of discharge: 08/18/22 Attending physician: Cliff Gilmore Consults: 08/17/22 13:00 Consult Physician Routine Consulting Provider: Errol Triplett Reason/Comments: Medical management Do you want consulting provider notified?: Yes Primary care physician: Errol Triplett [facility] Course: Discharge diagnosis 1. Morbid obesity status post laparoscopic sleeve gastrectomy Hospital course This 52-year-old female with a known history of morbid obesity. She is status post laparoscopic sleeve gastrectomy. Patient tolerated surgery well. Her pain is controlled. She is tolerating diet. She is having flatus. Denies any difficulty urinating. She has been up and ambulating. She is afebrile. She is stable for discharge. Please refer to chart for any further details. Physician Workers Compensation Examiner note has been reviewed by physician. Signing provider agrees with the documented findings, assessment, and plan of care. Patient Condition at Discharge: Stable Plan - Discharge Summary Discharge Rx Participant: No New Discharge Prescriptions: New Simethicone 40 mg/0.6 ml Drops [Mylicon Drops] 40 mg PO PCHS PRN #30 ml PRN Reason: Gas Ondansetron Odt [Zofran Odt] 4 mg PO Q8HR PRN #9 tab PRN Reason: Nausea HYDROcodone/APAP 5-325MG [[place] 5-325] 1 tab PO Q6HR PRN 2 Days #5 tab PRN Reason: Pain bisacodyL [Dulcolax] 5 mg PO DAILY PRN #10 tab PRN Reason: Constipation Omeprazole [PriLOSEC] 40 mg PO DAILY #30 cap Continue LORazepam [Ativan] 1 mg PO DIRECTED PRN PRN Reason: Anxiety lamoTRIgine [LaMICtal] 100 mg PO HS QUEtiapine FUMARATE [SEROquel] 25 mg PO HS Citalopram Hydrobromide [CeleXA] 30 mg PO HS Discharge Medication List LORazepam [Ativan] 1 mg PO DIRECTED PRN 04/20/17 [History] lamoTRIgine [LaMICtal] 100 mg PO HS 02/20/22 [History] Citalopram Hydrobromide [CeleXA] 30 mg PO HS 07/06/22 [History] QUEtiapine FUMARATE [SEROquel] 25 mg PO HS 07/06/22 [History] HYDROcodone/APAP 5-325MG [[place] 5-325] 1 tab PO Q6HR PRN 2 Days #5 tab 08/18/22 [Rx] Omeprazole [PriLOSEC] 40 mg PO DAILY #30 cap 08/18/22 [Rx] Ondansetron Odt [Zofran Odt] 4 mg PO Q8HR PRN #9 tab 08/18/22 [Rx] Simethicone 40 mg/0.6 ml Drops [Mylicon Drops] 40 mg PO PCHS PRN #30 ml 08/18/22 [Rx] bisacodyL [Dulcolax] 5 mg PO DAILY PRN #10 tab 08/18/22 [Rx] Follow up [facility]ment(s[facility] [facility] [place] [place] [facility] [place] [facility] Patient Instructions/Handouts: *Surgery [facility] - Scopalamine Patch Instructions Activity/Diet/Wound Care/Special Instructions: No driving while taking [place] No lifting over 10 pounds Shower daily. No soaking or tub baths for 2 weeks Very light activity until you are reevaluated at your follow up appointment with your surgeon No straws or carbonated beverages Discharge Disposition: HOME SELF-CARE
[2022-08-18] MEDS ORDERED: NEOSTIGMINE 1 MG/ML 10 ML VIAL ONE (11:45)
[2022-08-18] MEDS ORDERED: MIDAZOLAM 2 MG/2 ML VIAL ONE (11:45)
[2022-08-18] MEDS ORDERED: PROPOFOL 10 MG/ML 20 ML VIAL IV ONE ×2 (11:45)
[2022-08-18] MEDS ORDERED: LIDOCAINE 2% INJ 20 MG/ML (2 ML VIAL) ONE (11:45)
[2022-08-18] MEDS ORDERED: fentaNYL (PF) 50 MCG/ML 2 ML AMP ONE (11:45)
[2022-08-18] MEDS ORDERED: HYDROmorphone (PF) 1 MG/ML ONE (11:45)
[2022-08-18] MEDS ORDERED: ROCURONIUM 10 MG/ML (5 ML VIAL) IV ONE (11:45)
[2022-08-18] MEDS ORDERED: GLYCOPYRROLATE 0.2 MG/ML 2 ML VIAL ONE (11:45)
== END 2022-08-18 12:53 | disposition home or self-care (01) ==
LOC: OR 10:01 → 4SSUR 13:01 → OR 13:01 → UNDOADMOB 13:01 → 4SSUR 14:09 → UNDODISOB 08-18 12:53 → OR 08-18 12:53
PROVIDERS: ATTEND Surgery
DX: E66.01 Morbid (severe) obesity due to excess calories (principal); Z68.39 Body mass index [BMI] 39.0-39.9, adult; K21.9 Gastro-esophageal reflux disease without esophagitis; G47.33 Obstructive sleep apnea (adult) (pediatric); Z90.710 Acquired absence of both cervix and uterus; Z90.49 Acquired absence of other specified parts of digestive tract; F32.A Depression, unspecified; F41.9 Anxiety disorder, unspecified; Z86.59 Personal history of other mental and behavioral disorders; Z82.49 Family history of ischemic heart disease and other diseases of the circulatory system; Z79.899 Other long term (current) drug therapy
CPT/HCPCS: 94640; 97161; 97165; 80051; 82310; 82565; 83735; 84100; 84520; 85025; 88307; 43775; J2250; J1100; J2710; J0690 ×2; J2405; J1650; J3010; J1170 ×2; J1885 ×2; J2704; C9113; J1790; J2001

== ENCOUNTER → 2022-08-21 | Outpatient (CLI) | payer BC ==
[2022-08-21 11:56] VITALS: BP 138/91; PULSE 96; RESP 12; TEMP 98.4; BMI 36.1
== END ==
LOC: BARWHC3 11:23
PROVIDERS: ATTEND Surgery
DX: Z48.815 Encounter for surgical aftercare following surgery on the digestive system (principal); Z98.84 Bariatric surgery status; E66.01 Morbid (severe) obesity due to excess calories; Z68.36 Body mass index [BMI] 36.0-36.9, adult
CPT/HCPCS: 99211

== ENCOUNTER → 2022-08-21 | Outpatient (CLI) | payer BC ==
[~2022-08-21] MED LIST changes: -DEXAMETHASONE SOD PHOSPHATE 4 MG/ML 1 ML VIAL IV ONE; -ENOXAPARIN 40 MG/0.4 ML SYRINGE SQ PRN; -HYDROmorphone 0.5 MG/0.5 ML SYRINGE IVP PRN; -LIDOCAINE 1% (10MG/ML) FOR IV START INTRADERMA PRN; -ONDANSETRON 4 MG/2 ML VIAL IVP ONE; -SCOPOLAMINE 1 MG/72 HR PATCH TRANSDERM ONE; +SODIUM CHLORIDE 0.9% 500 ML 500 ML in EMPTY BAG 1 BAG IV PRN
[2022-08-21 11:39] VITALS: BP 143/78; PULSE 80; RESP 16; TEMP 98.4
[2022-08-21] MEDS: SODIUM CHLORIDE 0.9% 1,000 ML IV SCH ×2 (11:40→12:43)
== END ==
LOC: PROCWHC3 11:21
PROVIDERS: ATTEND Surgery
DX: E86.0 Dehydration (principal)
CPT/HCPCS: 96360; 96361

== ENCOUNTER → 2022-08-24 | Outpatient (CLI) | payer BC ==
[2022-08-24 14:09] VITALS: BP 120/83; PULSE 73; TEMP 98.8; BMI 36.1
--- NOTE | 2022-08-24 14:42 | P.HPBAR ---
Bariatric H&P - History & Physicial H&P Date: 08/24/22 History & Physicial: Visit/CC: sleeve F/U Patient initial contact: Initial weight: 94.801 kg Initial weight in pounds: 209.00 Height: 5 ft 3 in Initial BMI: 37.0 Last weight: Current weight: 92.442 kg Current weight in pounds: 203.80 Current BMI: 36.1 [place] body weight (based on NIH guidelines): 52.163 kg Excess body weight loss: 5.5% The patient is a 52 year-old F who presents for Bariatric Assessment. She presents today for postoperative follow-up. She has feelings of dehydration. He states she's had limited oral intake. Her weight is stable at 204 pounds Past Medical History Past Medical History: GERD/Reflux, Osteoarthritis (OA), Sleep Apnea/CPAP/BIPAP Additional Past Medical History / Comment(s): C-PAP MACHINE, PAIN IN KNEES. History of Any Multi-Drug Resistant Organisms: None Reported Past Surgical History: Bariatric Surgery, Cholecystectomy, Hysterectomy Additional Past Surgical History / Comment(s): thyroid biopsy /benign, lap band. lap band removal 03-23-22. EGD. one ovary removed Past Anesthesia/Blood Transfusion Reactions: No Reported Reaction Past Psychological History: Anxiety, Bipolar, Depression Smoking Status: Never smoker Past Alcohol Use History: Occasional Past Drug Use History: None Reported - Past Family History Father Family Medical History: No Reported History, Deep Vein Thrombosis (DVT) Daughter(s) Family Medical History: Deep Vein Thrombosis (DVT) Surgical - Exam Vital Signs Temp Pulse BP 98.8 F 73 120/83 08/24/22 14:00 08/24/22 14:00 08/24/22 14:00 - General well developed, well nourished, no distress - Eyes PERRL - ENT normal pinna - Neck no masses - Respiratory normal expansion - Cardiovascular Rhythm: regular - Abdomen Abdomen: soft, non tender Bariatric Assessment & Plan Plan: S post sleeve gastrectomy. Patient received IV fluid hydration today she is encouraged to increase her by mouth intake. Bariatric Checklist Checklist: Plan: Checklist: EGD: 1. Hiatal hernia: 2. H. Pylori: HgbA1c: Vitamin D: Smoking: Never smoker Primary care physician referral: Dr. Garcia Psychiatry clearance: Cardiology clearance: Sleep study: Diet journal: VTE risk score: VTE risk level: Rehab needs at discharge:
== END ==
LOC: BARWHC3 13:46
PROVIDERS: ATTEND Surgery
DX: Z48.815 Encounter for surgical aftercare following surgery on the digestive system (principal); Z68.36 Body mass index [BMI] 36.0-36.9, adult; K21.9 Gastro-esophageal reflux disease without esophagitis; G47.33 Obstructive sleep apnea (adult) (pediatric); M19.90 Unspecified osteoarthritis, unspecified site; Z99.89 Dependence on other enabling machines and devices
CPT/HCPCS: 97802; 99211

== ENCOUNTER → 2022-08-25 | Outpatient (CLI) | payer BC ==
[2022-08-25 08:08] VITALS: BP 150/79; PULSE 88; RESP 16; TEMP 98.1
[2022-08-25] MEDS: SODIUM CHLORIDE 0.9% 1,000 ML IV NR ×2 (08:10→09:10)
== END ==
LOC: PROCWHC3 07:57
PROVIDERS: ATTEND Surgery
DX: E86.0 Dehydration (principal)
CPT/HCPCS: 96360; 96361

== ENCOUNTER → 2022-08-31 | Outpatient (CLI) | payer BC ==
[2022-08-31 14:43] VITALS: BP 124/79; PULSE 71; TEMP 98.4; BMI 35.0
--- NOTE | 2022-08-31 15:08 | P.HPBAR ---
Bariatric H&P - History & Physicial H&P Date: 08/31/22 History & Physicial: Visit/CC: 2 week sleeve F/U Patient initial contact: Initial weight: 94.801 kg Initial weight in pounds: 209.00 Height: 5 ft 3 in Initial BMI: 37.0 Last weight: Current weight: 89.811 kg Current weight in pounds: 198.00 Current BMI: 35.0 [place] body weight (based on NIH guidelines): 52.163 kg Excess body weight loss: 11.7% The patient is a 52 year-old F who presents for Bariatric Assessment. Patient presents today for repair to follow. She has some mild GERD. She denies any significant dysphagia. Past Medical History Past Medical History: GERD/Reflux, Osteoarthritis (OA), Sleep Apnea/CPAP/BIPAP Additional Past Medical History / Comment(s): C-PAP MACHINE, PAIN IN KNEES. History of Any Multi-Drug Resistant Organisms: None Reported Past Surgical History: Bariatric Surgery, Cholecystectomy, Hysterectomy Additional Past Surgical History / Comment(s): thyroid biopsy /benign, lap band. lap band removal 03-23-22. EGD. one ovary removed Past Anesthesia/Blood Transfusion Reactions: No Reported Reaction Past Psychological History: Anxiety, Bipolar, Depression Smoking Status: Never smoker Past Alcohol Use History: Occasional Past Drug Use History: None Reported - Past Family History Father Family Medical History: No Reported History, Deep Vein Thrombosis (DVT) Daughter(s) Family Medical History: Deep Vein Thrombosis (DVT) Surgical - Exam Vital Signs Temp Pulse BP 98.4 F 71 124/79 08/31/22 14:39 08/31/22 14:39 08/31/22 14:39 - General well developed, well nourished, no distress - Eyes PERRL - ENT normal pinna - Neck no masses - Respiratory normal expansion - Cardiovascular Rhythm: regular - Abdomen Abdomen: soft, non tender Bariatric Assessment & Plan Plan: Patient's doing well. Her GERD is minimal will be observed. She'll follow-up in 4 weeks. Bariatric Checklist Checklist: Plan: Checklist: EGD: 1. Hiatal hernia: 2. H. Pylori: HgbA1c: Vitamin D: Smoking: Never smoker Primary care physician referral: DR. Brad TERAN Psychiatry clearance: Cardiology clearance: Sleep study: Diet journal: VTE risk score: VTE risk level: Rehab needs at discharge:
== END ==
LOC: BARWHC3 14:22
PROVIDERS: ATTEND Surgery
DX: Z48.815 Encounter for surgical aftercare following surgery on the digestive system (principal); Z98.84 Bariatric surgery status; K21.9 Gastro-esophageal reflux disease without esophagitis; M19.90 Unspecified osteoarthritis, unspecified site; G47.30 Sleep apnea, unspecified; Z99.89 Dependence on other enabling machines and devices
CPT/HCPCS: 99211

== ENCOUNTER → 2022-09-24 | Outpatient (CLI) | payer OTHER ==
[2022-09-24 18:44] LABS: HCT 40.7 % (37.2-46.3); HGB 13.2 g/dL (12.0-15.0); MCH 29.7 pg (27.0-32.0); MCHC 32.4 g/dL (32.0-37.0); MCV 91.7 fL (80.0-97.0); NRBC Per 100 WBC 0 /100 WBCS (0.0-0.0); Platelet Count 264 X 10*3/uL (140-440); RBC 4.44 X 10*6/uL (4.10-5.20); WBC 6.03 X 10*3/uL (4.50-10.00)
[2022-09-24 20:36] LABS: % Iron Saturation 26.42 (12.00-45.00); African American GFR (CKD) 103.1 (60.0-200.0); Albumin 4.4 g/dL (3.8-4.9); Albumin/Globulin Ratio 1.8 (1.60-3.17); Anion Gap 13.7 mmol/L (10.00-18.00); BUN/Creat Ratio 15.26 Ratio (12.00-20.00); Blood Urea Nitrogen 11.6 mg/dL (9.0-27.0); Calcium 9.2 mg/dL (8.7-10.3); Carbon Dioxide 24.2 mmol/L (20.0-27.5); Globulin 2.5 g/dL (1.6-3.3); Magnesium 2.2 mg/dL (1.5-2.4); Non-African American GFR(CKD) 88.9 (60.0-200.0); Total Bilirubin 0.4 mg/dL (0.30-1.20); Total Protein 6.9 g/dL (6.2-8.2)
[2022-09-25 12:30] LABS: Zinc, Serum 66 ug/dL (60-130)
== END | disposition home or self-care (01) ==
LOC: LABWHC1 11:56
PROVIDERS: ATTEND Surgery
DX: D50.8 Other iron deficiency anemias (principal); E66.01 Morbid (severe) obesity due to excess calories; T56.894A Toxic effect of other metals, undetermined, initial encounter; K90.9 Intestinal malabsorption, unspecified
CPT/HCPCS: 36415; 80053; 82306; 82607; 82728; 82746; 83540; 83550; 83735; 84255; 84425; 84443; 84590; 84630; 85027

== ENCOUNTER → 2022-10-05 | Outpatient (CLI) | payer OTHER ==
[2022-10-05 13:49] VITALS: BP 125/75; PULSE 73; TEMP 98.5; BMI 33.5
== END ==
LOC: BARWHC3 13:31
PROVIDERS: ATTEND Surgery
DX: Z71.3 Dietary counseling and surveillance (principal); E66.01 Morbid (severe) obesity due to excess calories; Z68.33 Body mass index [BMI] 33.0-33.9, adult
CPT/HCPCS: 97803; 99211

== ENCOUNTER → 2023-03-22 | Outpatient (CLI) | payer OTHER ==
[2023-03-22 14:59] VITALS: BP 110/71; PULSE 57; TEMP 98.1; BMI 30.4
--- NOTE | 2023-04-09 09:48 | P.HPBAR ---
Bariatric H&P - History & Physicial H&P Date: 03/22/23 History & Physicial: Visit/CC: sleeve F/U Patient initial contact: Initial weight: 94.801 kg Initial weight in pounds: 209.00 Height: 5 ft 3 in Initial BMI: 37.0 Last weight: Current weight: 78.018 kg Current weight in pounds: 172.00 Current BMI: 30.4 [place] body weight (based on NIH guidelines): 52.163 kg Excess body weight loss: 39.3% The patient is a 52 year-old F who presents for Bariatric Assessment. Patient has complaints of GERD. She states she's had increasing her GERD symptoms. Past Medical History Past Medical History: GERD/Reflux, Osteoarthritis (OA), Sleep Apnea/CPAP/BIPAP Additional Past Medical History / Comment(s): C-PAP MACHINE, PAIN IN KNEES. History of Any Multi-Drug Resistant Organisms: None Reported Past Surgical History: Bariatric Surgery, Cholecystectomy, Hysterectomy Additional Past Surgical History / Comment(s): thyroid biopsy /benign, lap band. lap band removal 03-23-22. EGD. one ovary removed. gastric sleeve 08/17/22 Past Anesthesia/Blood Transfusion Reactions: No Reported Reaction Past Psychological History: Anxiety, Bipolar, Depression Smoking Status: Never smoker Past Alcohol Use History: Occasional Past Drug Use History: None Reported - Past Family History Father Family Medical History: No Reported History, Deep Vein Thrombosis (DVT) Daughter(s) Family Medical History: Deep Vein Thrombosis (DVT) Surgical - Exam Vital Signs Temp Pulse BP 98.1 F 57 L 110/71 03/22/23 14:54 03/22/23 14:54 03/22/23 14:54 - General well developed, well nourished - Abdomen Abdomen: soft, non tender Bariatric Assessment & Plan Plan: Patient has GERD despite being omeprazole. Patient will be scheduled for EGD. Bariatric Checklist Checklist: Plan: Checklist: EGD: 1. Hiatal hernia: 2. H. Pylori: HgbA1c: Vitamin D: Smoking: Never smoker Primary care physician referral: DR. Bard TERAN Psychiatry clearance: Cardiology clearance: Sleep study: Diet journal: VTE risk score: VTE risk level: Rehab needs at discharge:
== END ==
LOC: BARWHC3 14:21
PROVIDERS: ATTEND Surgery
DX: K21.9 Gastro-esophageal reflux disease without esophagitis (principal); E66.01 Morbid (severe) obesity due to excess calories; M19.90 Unspecified osteoarthritis, unspecified site; G47.30 Sleep apnea, unspecified; Z99.89 Dependence on other enabling machines and devices; Z68.30 Body mass index [BMI] 30.0-30.9, adult; Z98.84 Bariatric surgery status; Z46.51 Encounter for fitting and adjustment of gastric lap band
CPT/HCPCS: 99211

== ENCOUNTER → 2023-03-23 | Outpatient (CLI) | payer OTHER ==
[2023-03-23 21:17] LABS: % Iron Saturation 21.92 (12.00-45.00); Iron 57 UG/DL (50-170); Magnesium 2.1 mg/dL (1.5-2.4); Total Iron Binding Capacity 260 UG/DL (228-460)
[2023-03-23 21:18] LABS: ALT 19 U/L (8-44); AST 14 U/L (13-35); Albumin 4.1 d/dL (3.8-4.9); Albumin/Globulin Ratio 1.95 Ratio (1.60-3.17); Alkaline Phosphatase 107 U/L (41-126); BUN/Creat Ratio 14.57 Ratio (12.00-20.00); Blood Urea Nitrogen 10.2 mg/dL (9.0-27.0); Calcium 8.8 mg/dL (8.7-10.3); Carbon Dioxide 26.3 mmol/L (21.6-31.8); Chloride 105 mmol/L (96-109); Ferritin 53.9 ng/mL (10.0-291.0); Globulin 2.1 d/dL (1.6-3.3); Glucose 86 mg/dL (70-110); Potassium 4.5 mmol/L (3.5-5.5); Sodium 141 mmol/L (135-145); Total Bilirubin <0.2 mg/dL (0.3-1.2); Total Protein 6.2 d/dL (6.2-8.2)
[2023-03-24 01:36] LABS: HCT 39.6 % (37.2-46.3); HGB 12.5 d/dL (12.0-15.0); MCH 29.9 pg (27.0-32.0); MCHC 31.6 d/dL (32.0-37.0); MCV 94.7 FL (80.0-97.0); Mean Platelet Volume 11.1 FL (9.5-12.2); NRBC Per 100 WBC 0 X 10*3/uL (0.00-0.01); Platelet Count 287 X 10*3/uL (140-440); RBC 4.18 X 10*6/uL (4.10-5.20); RDW 12.7 % (11.5-14.5)
[2023-03-24 09:04] LABS: Zinc, Serum 69 ug/dL (60-130)
[2023-03-25 06:18] LABS: Vitamin A 46 ug/dL (38-106)
[2023-03-25 06:35] LABS: Vit B1(Thiamine) 88 ug/L (38-122)
== END | disposition home or self-care (01) ==
LOC: LABWHC1 13:34
PROVIDERS: ATTEND Surgery
DX: E66.01 Morbid (severe) obesity due to excess calories (principal); D50.8 Other iron deficiency anemias; E44.0 Moderate protein-calorie malnutrition; E55.9 Vitamin D deficiency, unspecified; T56.894A Toxic effect of other metals, undetermined, initial encounter
CPT/HCPCS: 36415; 80053; 82306; 82607; 82728; 82746; 83540; 83550; 83735; 84255; 84425; 84443; 84590; 84630; 85027

== ENCOUNTER 2023-04-19 09:19 | Day surgery (SDC) | payer OTHER ==
[2023-04-12 14:38] VITALS: BMI 31.1
[~2023-04-19 09:19] MED LIST changes: +LACTATED RINGERS 1,000 ML IV SCH; -SODIUM CHLORIDE 0.9% 500 ML 500 ML in EMPTY BAG 1 BAG IV PRN
[2023-04-19 09:45] VITALS: RESP 16; TEMP 97.5
[2023-04-19] MEDS ORDERED: PROPOFOL 10 MG/ML 20 ML VIAL IV ONE (10:20)
[2023-04-19] MEDS ORDERED: LIDOCAINE 2% INJ 20 MG/ML (2 ML VIAL) ONE (10:20)
[2023-04-19 10:50] VITALS: BP 125/78; PULSE 64
--- NOTE | 2023-04-19 12:10 | P.GSHP ---
History of Present Illness H&P Date: 04/19/23 Chief Complaint: GERD This a 52 female who has complaints of GERD. Patient's previous history of sleeve gastrectomy. Past Medical History Past Medical History: GERD/Reflux, Osteoarthritis (OA) Additional Past Medical History / Comment(s): C-PAP MACHINE, PAIN IN KNEES. History of Any Multi-Drug Resistant Organisms: None Reported Past Surgical History: Bariatric Surgery, Cholecystectomy, Hysterectomy Additional Past Surgical History / Comment(s): thyroid biopsy /benign, lap band colonoscopy. lap band removal 03-23-22. EGD. one ovary removed. gastric sleeve 08/17/22 Past Anesthesia/Blood Transfusion Reactions: No Reported Reaction Additional Past Anesthesia/Blood Transfusion Reaction / Comment(s): no blood transfusion Smoking Status: Never smoker - Past Family History Father Family Medical History: Deep Vein Thrombosis (DVT) Daughter(s) Family Medical History: Deep Vein Thrombosis (DVT) Mother Family Medical History: CVA/TIA Medications and Allergies Home Medications Medication Instructions Recorded Confirmed Type LORazepam [Ativan] 1 mg PO DIRECTED PRN 04/20/17 04/19/23 History Citalopram Hydrobromide [CeleXA] 20 mg PO HS 07/06/22 04/19/23 History Omeprazole [PriLOSEC] 40 mg PO DAILY #30 cap 08/18/22 04/19/23 Rx Budesonide-Formot 160-4.5 Mcg 2 puff INHALATION BID 03/22/23 04/19/23 History [Symbicort 160-4.5 Mcg Inhaler] Doxycycline [Vibramycin] 100 mg PO BID 03/22/23 04/19/23 History risperiDONE [RisperDAL] 0.5 mg PO HS 03/22/23 04/19/23 History Sucralfate [Carafate] 1 gm PO BID #180 tablet 04/19/23 Rx Allergies Allergy/AdvReac Type Severity Reaction Status Date / Time No Known Allergies Allergy Verified 04/19/23 09:34 Surgical - Exam Vital Signs Temp Pulse Resp BP Pulse Ox 97.5 F L 59 L 16 137/75 97 04/19/23 09:43 04/19/23 09:43 04/19/23 09:43 04/19/23 09:43 04/19/23 09:43 - General well developed, well nourished, no distress - Eyes PERRL - ENT normal pinna, normal nares - Neck no masses - Respiratory normal expansion - Cardiovascular Rhythm: regular - Abdomen Abdomen: soft, non tender Assessment and Plan Assessment: GERD. We'll perform EGD.
--- NOTE | 2023-04-19 12:13 | P.OP ---
Date of Procedure: 04/19/23 Preoperative Diagnosis: GERD Postoperative Diagnosis: Esophagitis Procedure(s) Performed: EGD Anesthesia: MAC Surgeon: Cliff Gilmore Pathology: other (Esophagus) Condition: stable Disposition: PACU Description of Procedure: The patient's placed on the endoscopy table in the lateral position. She she wa s received IV sedation. The gastroscope placed oropharynx passed in the esophagus and stomach. Scope was then placed through the pylorus. The first and second portion of the duodenum appeared normal. Scope was brought back the antrum this. Minimal inflamed. A biopsies performed. Scope was then brought back through the gastric sleeve. There is no evidence of inflammation or erosion. The GE junction was at 440 cm. The distal esophagus appeared mildly inflamed. A biopsies performed. The proximal esophagus appeared normal. The scope was withdrawn for patient.
== END 2023-04-19 11:50 | disposition home or self-care (01) ==
LOC: ORWHC2ENDO 09:19
PROVIDERS: ATTEND Surgery
DX: K29.50 Unspecified chronic gastritis without bleeding (principal); K21.00 Gastro-esophageal reflux disease with esophagitis, without bleeding; M19.90 Unspecified osteoarthritis, unspecified site; Z98.84 Bariatric surgery status; Z90.49 Acquired absence of other specified parts of digestive tract; Z90.710 Acquired absence of both cervix and uterus; Z82.3 Family history of stroke; Z79.51 Long term (current) use of inhaled steroids
CPT/HCPCS: 88305; 88342; 43239; J2704; J2001

== ENCOUNTER → 2023-05-24 | Outpatient (CLI) | payer OTHER | END | disposition home or self-care (01) | LOC: LABWHC1 09:33 | PROVIDERS: ATTEND Family Medicine | DX: Z71.85 Encounter for immunization safety counseling (principal) | CPT/HCPCS: 36415; 86787 ==

== ENCOUNTER → 2023-12-27 | Outpatient (CLI) | payer OTHER ==
--- NOTE | 2023-12-27 11:44 | XR ---
EXAMINATION TYPE: XR knee complete LT DATE OF EXAM: 12/27/2023 10:48 AM CLINICAL INDICATION:Female, 53 years old with history of M19.91 OSTEOARTHRITIS; [facility] COMPARISON: None. TECHNIQUE: XR knee complete LT; examined in Frontal, lateral and oblique projections. FINDINGS: No evidence of any acute osseous pathology, soft tissue swelling, or joint effusion is no rosalva. Tricompartmental osteophyte formation involving the femoral condyles, tibial plateau and patella . Mild joint space narrowing. IMPRESSION: 1. No acute osseous pathology. 2. Mild to moderate tricompartmental osteoarthritic changes.
== END | disposition home or self-care (01) ==
LOC: RADXRMAIN 10:21
PROVIDERS: ATTEND Family Medicine
DX: M19.91 Primary osteoarthritis, unspecified site (principal); M17.12 Unilateral primary osteoarthritis, left knee

== ENCOUNTER 2024-04-08 22:32 | Emergency (ER) | payer OTHER ==
[2024-04-08 22:35] VITALS: RESP 18
[2024-04-08] MEDS: HYDROcodone/APAP 5-325MG 1 EACH TAB PO STA (23:39)
--- NOTE | 2024-04-08 23:53 | ED ---
Lower Extremity Injury HPI - General Chief Complaint: Extremity Injury, Lower Stated Complaint: Left knee injury Source: patient Mode of arrival: ambulatory Limitations: no limitations - History of Present Illness Initial Comments: Patient is a 53-year-old woman who presents with complaint of left knee pain. The patient states that she had been running and then fell landing on bilateral knees striking the left harder. She states that over the course today she has noticed bruising and swelling develop. The patient is able to bear weight but now is having moderate pain, much worse if she attempts to flex the left knee. She denies weakness or numbness distal to injury. No other injuries MD Complaint: knee injury Onset/Timin -: hour(s) Injury: Knee: Right Type of Injury: blunt Place: street/outdoors Severity: moderate Improves With: NSAID Worsens With: movement Context: fall Associated Symptoms: swelling - Related Data Home Medications Medication Instructions Recorded Confirmed LORazepam [Ativan] 1 mg PO DIRECTED PRN 04/20/17 04/19/23 Citalopram Hydrobromide [CeleXA] 20 mg PO HS 07/06/22 04/19/23 Budesonide-Formot 160-4.5 Mcg 2 puff INHALATION BID 03/22/23 04/19/23 [Symbicort 160-4.5 Mcg Inhaler] Doxycycline [Vibramycin] 100 mg PO BID 03/22/23 04/19/23 risperiDONE [RisperDAL] 0.5 mg PO HS 03/22/23 04/19/23 Previous Rx's Medication Instructions Recorded Omeprazole [PriLOSEC] 40 mg PO DAILY #30 cap 08/18/22 Sucralfate [Carafate] 1 gm PO BID #180 tablet 04/19/23 HYDROcodone/APAP 5-325MG [[place] 1 tab PO Q4HR PRN 3 Days #18 tab 04/08/24 5-325] Ibuprofen [Motrin] 600 mg PO Q8HR PRN #20 tab 04/08/24 Allergies Allergy/AdvReac Type Severity Reaction Status Date / Time No Known Allergies Allergy Verified 04/08/24 22:35 Review of Systems ROS Statement: Those systems with pertinent positive or pertinent negative responses have been documented in the HPI. ROS Other: All systems not noted in ROS Statement are negative. Constitutional: Denies: fever Musculoskeletal: Reports: as per HPI, arthralgia Skin: Reports: other Neurological: Denies: weakness, numbness Past Medical History Past Medical History: GERD/Reflux, Osteoarthritis (OA) Additional Past Medical History / Comment(s): C-PAP MACHINE, PAIN IN KNEES. History of Any Multi-Drug Resistant Organisms: None Reported Past Surgical History: Bariatric Surgery, Cholecystectomy, Hysterectomy Additional Past Surgical History / Comment(s): thyroid biopsy /benign, lap band colonoscopy. lap band removal 03-23-22. EGD. one ovary removed. gastric sleeve 08/17/22 Past Anesthesia/Blood Transfusion Reactions: No Reported Reaction Additional Past Anesthesia/Blood Transfusion Reaction / Comment(s): no blood transfusion Past Psychological History: Anxiety, Bipolar, Depression Smoking Status: Never smoker - Past Family History Father Family Medical History: Deep Vein Thrombosis (DVT) Daughter(s) Family Medical History: Deep Vein Thrombosis (DVT) Mother Family Medical History: CVA/TIA General Exam Limitations: no limitations General appearance: alert, in no apparent distress Head exam: Present: atraumatic, normocephalic Eye exam: Present: normal appearance. Absent: scleral icterus, conjunctival injection Extremities exam: Present: tenderness, normal capillary refill. Absent: full ROM Left Hip exam: Present: normal inspection, full ROM. Absent: tenderness, swelling Upper Leg exam: Present: normal inspection, full ROM. Absent: tenderness, swelling Knee exam: Present: tenderness, swelling, abrasion, ecchymosis, full knee extension. Absent: full ROM, laceration, deformity, crepitus, dislocation, erythema, effusion Lower Leg exam: Present: normal inspection, full ROM. Absent: tenderness, swelling, abrasion Ankle exam: Present: normal inspection, full ROM. Absent: tenderness, swelling Foot/Toe exam: Present: normal inspection, full ROM. Absent: tenderness, swelling Neurovascular tendon exam: Present: no vascular compromise. Absent: abnormal cap refill, motor deficit, sensory deficit, tendon deficit Neurological exam: Absent: motor sensory deficit Skin exam: Present: warm, dry, intact, normal color, abrasion. Absent: rash Course Vital Signs 04/08/24 04/09/24 22:33 01:04 Temperature 98.1 F 98.2 F Pulse Rate 64 50 L Respiratory 18 18 Rate Blood Pressure 140/74 129/70 O2 Sat by Pulse 99 99 Oximetry Medical Decision Making - Medical Decision Making The patient had x-ray of the knee that I interpreted as negative for acute fracture or dislocation. Was pt. sent in by a medical professional or institution (NANCY Byrd, NIGHT SHIFT MANAGER, urgent care, hospital, or care home...) When possible be specific @ -[No] Did you speak to anyone other than the patient for history (EMS, parent, family, police, friend...)? What history was obtained from this source @ -[No] Did you review nursing and triage notes (agree or disagree)? Why? @ -[I reviewed and agree with nursing and triage notes] Were old charts reviewed (outside hosp., previous admission, EMS record, old EKG, old radiological studies, urgent care reports/EKG's, care home records)? Report findings @ -[No old charts were reviewed] Differential Diagnosis (chest pain, altered mental status, abdominal pain women, abdominal pain men, vaginal bleeding, weakness, fever, dyspnea, syncope, headache, dizziness, GI bleed, back pain, seizure, CVA, palpatations, mental health, musculoskeletal)? @ -[Differential Musculoskeletal Muscular strain, contusion, ligament sprain, fracture, arthritis, septic arthritis, bursitis, cellulitis, muscle spasm, nerve compression, DVT, arterial occlusion, herpes zoster, electrolyte abnormality, tumor.... This is not meant to be in all inclusive list EKG interpreted by me (3pts min.). @ -[As above] X-rays interpreted by me (1pt min.). @ -[I interpreted as above CT interpreted by me (1pt min.). @ -[None done] U/S interpreted by me (1pt. min.). @ -[None done] What testing was considered but not performed or refused? (CT, X-rays, U/S, labs)? Why? @ -[None] What meds were considered but not given or refused? Why? @ -[None] Did you discuss the management of the patient with other professionals (professionals i.e. NANCY Byrd, NIGHT SHIFT MANAGER, lab, RT, psych nurse, social welfare research worker, astro technician, teacher, boating safety officer, family service caseworker)? Give summary @ -[No] Was smoking cessation discussed for >3mins.? @ -[No] Was critical care preformed (if so, how long)? @ -[No] Were there social determinants of health that impacted care today? How? (Homelessness, low income, unemployed, alcoholism, drug addiction, transportation, low edu. Level, literacy, decrease access to med. care, [facility], rehab)? @ -[No] Was there de-escalation of care discussed even if they declined (Discuss DNR or withdrawal of care, Hospice)? DNR status @ -[No] What co-morbidities impacted this encounter? (DM, HTN, Smoking, COPD, CAD, Cancer, CVA, ARF, Chemo, Hep., AIDS, mental health diagnosis, sleep apnea, morbid obesity)? @ -[None] Was patient admitted / discharged? Hospital course, mention meds given and route, prescriptions, significant lab abnormalities, going to OR and other pertinent info. @ -[Patient is 53-year-old woman here with knee injury. The x-ray is negative I did discuss appropriate further care and follow-up as well as return parameters. Undiagnosed new problem with uncertain prognosis? @ -[No] Drug Therapy requiring intensive monitoring for toxicity (Heparin, Nitro, Insulin, Cardizem)? @ -[No] Were any procedures done? @ -[No] Diagnosis/symptom? @ -[Acute knee contusion, bilateral Acute, or Chronic, or Acute on Chronic? @ -[Acute Uncomplicated (without systemic symptoms) or Complicated (systemic symptoms)? @ -[Uncomplicated Side effects of treatment? @ -[No] Exacerbation, Progression, or Severe Exacerbation? @ -[No] Poses a threat to life or bodily function? How? (Chest pain, [place], [place], pneumonia, PE, COPD, DKA, ARF, appy, cholecystitis, CVA, Diverticulitis, Homicidal, Suicidal, threat to staff... and all critical care pts) @ -[No] Disposition Clinical Impression: Contusion of knee Disposition: HOME SELF-CARE Condition: Good Instructions (If sedation given, give patient instructions): Knee Sprain (ED) Prescriptions: Ibuprofen [Motrin] 600 mg PO Q8HR PRN #20 tab PRN Reason: Pain HYDROcodone/APAP 5-325MG [[place] 5-325] 1 tab PO Q4HR PRN 3 Days #18 tab PRN Reason: Pain Is patient prescribed a controlled substance at d/c from ED?: No Referrals: Errol Triplett MD [Primary Care Provider] - 1-2 days Olena Yeboah DO [Doctor of Osteopathic Medicine] - 1-2 days
[2024-04-09 01:05] VITALS: BP 129/70; PULSE 50; TEMP 98.2
--- NOTE | 2024-04-09 01:35 | XR ---
EXAM: XR Left Knee, 3 Views CLINICAL HISTORY: ITS.REASON XR Reason: fall,pain TECHNIQUE: Three views of the left knee. COMPARISON: 12/27/2023 FINDINGS: Bones/joints: No fracture or malalignment. Joint spaces are preserved. Trace joint effusion. Soft tissues: Prepatellar soft tissue edema. IMPRESSION: Prepatellar soft tissue edema. No acute fracture.
== END 2024-04-09 01:05 | disposition home or self-care (01) ==
LOC: EC 22:32
DX: S80.02XA Contusion of left knee, initial encounter (principal); S80.01XA Contusion of right knee, initial encounter; W18.30XA Fall on same level, unspecified, initial encounter; Y93.02 Activity, running
CPT/HCPCS: 73562; 99283; L1830 ×2

== ENCOUNTER → 2024-07-21 | Outpatient (CLI) | payer OTHER ==
--- NOTE | 2024-07-22 12:34 | MR ---
EXAMINATION TYPE: MR knee LT wo con DATE OF EXAM: 07/21/2024 COMPARISON: None HISTORY: Left knee pain and swelling x4 months, Fell 04-08-2024 TECHNIQUE: Multiplanar, multisequence imaging of the left knee is performed without IV contrast. FINDINGS: There is no bone contusion or fracture. There is a small joint effusion. There is diffuse abnormal signal intensity in the anterior cruciate ligament consistent with a severe strain with partial tear. The posterior cruciate ligament and the lateral collateral ligaments are i ntact. There is no meniscal tear. There is mild hypertrophic spurring and pinning of the articular cartilages of all 3 compartments of the knee consistent with mild possibly moderate osteoarthritis greatest in the medial compartment. Th ere are a few subchondral cysts in the intercondylar region. There is a full-thickness defect in the lateral femoral condyle cartilage but no underlying osseous d efect or edema. IMPRESSION: 1. Severe strain with partial tearing of the ACL. 2. No meniscal injury. 3. Full-thickness defects of the articular cartilage of the lateral femoral condyle without underlyin g osseous lesion. 4. Mild to moderate tricompartment osteoarthritis as described, greatest in the medial compartment. [facility], , 07/22/2024 12:32 PM
== END | disposition home or self-care (01) ==
LOC: RADMRIMAIN 21:30
PROVIDERS: ATTEND Orthopaedic Surgery
DX: S83.512A Sprain of anterior cruciate ligament of left knee, initial encounter (principal); M17.12 Unilateral primary osteoarthritis, left knee

== ENCOUNTER 2024-08-30 08:18 | Day surgery (SDC) | payer OTHER ==
[2024-08-29 08:58] VITALS: BMI 32.0
--- NOTE | 2024-08-29 22:28 | HP ---
HISTORY AND PHYSICAL DATE OF SURGERY: 08/30/2024. HISTORY OF PRESENT ILLNESS: Nohemi Zaman is a 54-year-old patient seen with progressive left knee pain. We discussed options regarding treatment. She elected to proceed with left knee arthroscopy. Consent was obtained. PAST MEDICAL HISTORY: Gastroesophageal reflux disease, anxiety. PAST SURGICAL HISTORY: Cholecystectomy, gastric sleeve surgery. DAILY MEDICATIONS: 1. Prilosec. 2. Celexa. ALLERGIES: None. SOCIAL HISTORY: She denies tobacco use. PHYSICAL EVALUATION OF THE LEFT KNEE: Her range of motion is -2/3 to 120 degrees. She has a mild effusion. Tenderness along the medial and lateral joint lines. Positive medial Karol's. Positive lateral Karol's. Ligaments stable. Hip rotation without pain. Distal neurovascular exam is intact. IMAGING STUDIES: Left knee radiographs revealed moderate osteoarthritis. MRI of left knee revealed a full-thickness defect, lateral femoral condyle, partial ACL tear, mild to moderate osteoarthritis. IMPRESSION: Internal derangement of left knee with full-thickness defect, lateral femoral condyle, and partial ACL tear. PLAN: Left knee arthroscopy with microfracture, lateral femoral condyle, debridement of partial ACL tear. MMODL / IJN: [id number] /
[~2024-08-30 08:18] MED LIST changes: +HYDROmorphone 0.5 MG/0.5 ML SYRINGE IVP PRN; -LACTATED RINGERS 1,000 ML IV SCH
[2024-08-30] MEDS: IV FLUID CONTINUATION 1,000 ML IV ONE (08:53)
[2024-08-30 09:04] VITALS: RESP 16
[2024-08-30 09:23] LABS: Basophils % (A) 0 %; Eosinophils # (A) 0.1 k/uL (0-0.7); Eosinophils % (A) 1 %; HCT 39.7 % (34.0-46.0); HGB 12.9 gm/dL (11.4-16.0); Lymphocytes # (A) 1.9 k/uL (1.0-4.8); Lymphocytes % (A) 23 %; MCH 29.3 pg (25.0-35.0); MCHC 32.6 g/dL (31.0-37.0); MCV 89.8 fL (80.0-100.0); Mean Platelet Volume 7.6; Monocytes # (A) 0.4 k/uL (0-1.0); Monocytes % (A) 5 %; Neutrophils # (A) 5.9 k/uL (1.3-7.7); Neutrophils % (A) 70 %; Platelet Count 324 k/uL (150-450); RBC 4.42 m/uL (3.80-5.40); RDW 13.4 % (11.5-15.5); WBC 8.4 k/uL (3.8-10.6)
[2024-08-30] MEDS: ONDANSETRON 4 MG/2 ML VIAL IVP ONE (09:24)
[2024-08-30] MEDS: LACTATED RINGERS 1,000 ML IV SCH (09:24)
[2024-08-30] MEDS: DEXAMETHASONE SOD PHOSPHATE 4 MG/ML 1 ML VIAL IV ONE (09:25)
[2024-08-30 09:36] LABS: African American GFR (CKD) 89 (>60 ml/min/1.73 sqM); Anion Gap 8 mmol/L; Blood Urea Nitrogen 6 mg/dL (7-17); Calcium 9.1 mg/dL (8.4-10.2); Carbon Dioxide 24 mmol/L (22-30); Chloride 108 mmol/L (98-107); Glucose 87 mg/dL (74-99); Non-African American GFR(CKD) 77 (>60 ml/min/1.73 sqM); Potassium 4.1 mmol/L (3.5-5.1); Sodium 140 mmol/L (137-145)
[2024-08-30] MEDS ORDERED: fentaNYL (PF) 50 MCG/ML 2 ML AMP ONE (10:30)
[2024-08-30] MEDS ORDERED: HYDROmorphone (PF) 1 MG/ML ONE (10:30)
[2024-08-30] MEDS ORDERED: PHENYLEPHRINE-0.9% NACL SYG 1,000 MCG/10 ML SYRINGE ONE (10:30)
[2024-08-30] MEDS ORDERED: LIDOCAINE 1% INJ 10MG/ML (20 ML MDV) ONE (10:30)
[2024-08-30] MEDS ORDERED: PROPOFOL 10 MG/ML 20 ML VIAL IV ONE (10:30)
[2024-08-30] MEDS ORDERED: MIDAZOLAM 2 MG/2 ML VIAL ONE (10:30)
[2024-08-30] MEDS: BUPIVACAINE (PF) 0.25% 30 ML VIAL SQ ONE ×2 (11:08)
[2024-08-30] MEDS: LACTATED RINGERS 1,000 ML IV ONE (11:10)
--- NOTE | 2024-08-30 11:25 | P.OP ---
Date of Procedure: 08/30/24 Preoperative Diagnosis: Internal derangement left knee Postoperative Diagnosis: 1. Tear medial and lateral meniscus left knee 2. Grade IV chondromalacia medial femoral condyle left knee 3. Reactive synovitis medial, lateral and suprapatellar compartments left knee 4. Partial ACL tear left knee Procedure(s) Performed: 1. Arthroscopic partial medial and lateral meniscectomy left knee 2. Arthroscopic microfracture medial femoral condyle left knee 3. Arthroscopic partial synovectomy medial, lateral and suprapatellar compartments left knee 4. Arthroscopic debridement partial ACL tear left knee Anesthesia: LEANNAA, local Surgeon: Tacho Luna Estimated Blood Loss (ml): 8 Pathology: none sent Condition: stable Disposition: PACU Indications for Procedure: 54-year-old patient seen with progressive left knee pain. After having treatment options discussed, she elected to proceed with arthroscopy. Operative Findings: See description of procedure Description of Procedure: Patient was taken to the operative suite. Patient underwent a general anesthetic by the department of anesthesia. Patient was given preoperative antibiotics. The left lower extremity was placed in a well-padded arthroscopic leg rosas. The left leg was prepped and draped in the normal sterile orthopedic fashion. A lateral parapatellar and suprapatellar incision was made. Trochars were inserted. Arthroscopy was initiated. Suprapatellar pouch revealed diffuse thick reactive synovitis. The patellofemoral joint appeared to articulate congruently. There was grade II chondromalacia patella without tears. The scope was guided into the medial gutter. No loose bodies or plica were identified. The scope was then guided into the medial compartment. A medial parapatellar incision was made. Trocar inserted followed by probe. The re was a radial tear posterior horn medial meniscus. There was an area of grade III/IV chondromalacia medial femoral condyle with some osteochondral flap tears present. There were areas of grade III/IV chondromalacia involving the tibial plateau with small areas of exposed bone there as well. There was thick reactive synovitis anteriorly. I performed a partial medial meniscectomy getting down to stable meniscal tissue. I performed a chondroplasty medial femoral condyle getting down to stable osteochondral tissue. I performed a partial synovectomy decompressing the thick reactive synovitis anteriorly. I did note an area of grade IV chondromalacia involving the anterior aspect medial femoral condyle measuring just about a centimeter in diameter. I introduced a microfracture awl and I performed a microfracture to that area penetrating the bone with resultant bleeding at the microfracture site. The residual meniscus was stable. The residual osteochondral surface was stable. There was good decompression of the synovitis. Scope and probe were then guided into the intercondylar notch. Cruciates were identified, probed and saw some partial tearing of the anterior crucial ligament. I reduced a motorized shaver and I debrided that down to stable tissue. The residual ligament was about 70% and was stable.. The scope and probe were then guided into lateral compartment. Th ere was a radial tear mid body lateral meniscus. There were grade I chondromalacia changes lateral compartment with no tears. There was thick reactive synovitis anteriorly. I performed a partial lateral meniscectomy getting down to stable meniscal tissue. I performed a partial synovectomy decompressing the reactive synovitis. The residual meniscus was stable. There was good decompression of the synovitis. The scope was in guided back into the suprapatellar compartment. Used a motorized shaver into the suprapatellar compartment. I debrided some piecemeal fragments of meniscus I encountered. I performed a partial synovectomy. The shaver was removed. There was good decompression of the synovitis. I took 1 more look around the entire knee, no residual debris. Instruments were now removed from the joint. The joint was infiltrated with .25% Marcaine. Steri-Strips were applied to the portal sites. Sterile dressings were applied. The patient was placed into a AMOS hose. No to urniquet was utilized. The patient was awakened, transferred to a bed and taken to recovery stable satisfactory condition.
[2024-08-30 11:40] VITALS: TEMP 97.6
[2024-08-30] MEDS: HYDROcodone/APAP 5-325MG 1 EACH TAB PO PRN (12:37)
[2024-08-30 12:58] VITALS: BP 102/51; PULSE 76
== END 2024-08-30 13:27 | disposition home or self-care (01) ==
LOC: OR 08:18
PROVIDERS: ATTEND Orthopaedic Surgery
DX: S83.242A Other tear of medial meniscus, current injury, left knee, initial encounter (principal); S83.282A Other tear of lateral meniscus, current injury, left knee, initial encounter; S83.512A Sprain of anterior cruciate ligament of left knee, initial encounter; M65.962 Unspecified synovitis and tenosynovitis, left lower leg; J45.909 Unspecified asthma, uncomplicated; K21.9 Gastro-esophageal reflux disease without esophagitis; F17.200 Nicotine dependence, unspecified, uncomplicated; F31.9 Bipolar disorder, unspecified; Z90.49 Acquired absence of other specified parts of digestive tract; Z79.899 Other long term (current) drug therapy; X58.XXXA Exposure to other specified factors, initial encounter
CPT/HCPCS: 80048; 85025; 29880; J2250; J1100; J0690; J2405; J2003; J3010; J1171; J2704; J2371; J0665